=== PATIENT | female | born 1940 | race Caucasian/White ===

== ENCOUNTER 2021-07-22 09:54 | Inpatient (IN) | payer MEDICARE, MEDICAID, SELFPAY ==
[2021-07-22] VITALS (7 sets, daily range): BP systolic 100–146; BP diastolic 00–65; PULSE 59–80; RESP 15–21; TEMP 36.8–38.8; O2SAT 95–99; BMI 30.2
--- NOTE | ~2021-07-22 | CT_ITS ---
EXAMINATION: CT CHEST WITHOUT CONTRAST CLINICAL INFORMATION: Diffuse crackles. Hypoxia. COMPARISON: Previous chest x-ray from earlier the same day TECHNIQUE: Axial images through the chest without contrast. Sagittal and coronal reconstructions on the technologist workstation were performed. Exam is limited due to artifact from respiratory motion. This CT examination was performed using dose optimization techniques as appropriate, variously including the following: *Automated exposure control *Adjustment of mA and/or kV according to patient size (this includes techniques or standardized protocols for targeted exams where dose is matched to indication/reason for exam; i.e. extremities or head) *Use of iterative reconstruction technique DLP: 558 mGy-cm FINDINGS: LUNGS: There is elevation of the right hemidiaphragm. There is right middle lobe atelectasis. There are scattered small nodules and nodular opacities seen in both upper lobes probably representing airways disease. Largest nodule is in the right upper lobe and measures 6 mm, axial image 88 series 5. There are clustered peribronchial nodules seen in the right middle and right lower lobe suggestive of airways disease. There are clustered peribronchial nodules in the lingula suggestive of airways disease as well. There is focal atelectasis or small infiltrate in the left lower lobe. MEDIASTINUM: There is evidence of atherosclerotic disease. The heart does not appear enlarged. There is mild coronary artery and aortic valve calcification. The thoracic aorta is normal in caliber. There is no pericardial effusion. There are no enlarged hilar or mediastinal lymph nodes. PLEURA: There is no pleural effusion. No pleural mass or thickening. AXILLA: No lymphadenopathy. UPPER ABDOMEN: Evaluation of the liver is limited due to motion. There is question of low-attenuation liver lesions. Some low-attenuation areas are in the peripheral liver adjacent to the ribs and may be artifactual. There is a 2 cm low-attenuation liver lesion in the more central liver axial image 42 series 3. There is a well-defined 2.5 cm low-attenuation lesion in the spleen that probably represents a cyst. There are atrophic changes of the pancreas. OSSEOUS STRUCTURES: There are degenerative changes of the spine and shoulders. The bones are heterogeneous in attenuation. CT/CT chest wo con IMPRESSION: Numerous clustered peribronchial nodules suggestive of airways disease. Left lower lobe atelectasis or small pneumonia. Elevated right hemidiaphragm and right middle lobe atelectasis. Question liver lesions.
--- NOTE | ~2021-07-22 | XR_ITS ---
EXAMINATION: XR CHEST CLINICAL INFORMATION: Fever and cough COMPARISON: None TECHNIQUE: AP portable view of the chest was obtained. FINDINGS: There is elevation of the right hemidiaphragm. No confluent parenchymal disease identified. No pneumothorax or pleural effusion. Heart normal size. No evidence of pulmonary edema. Calcified vessels present. There is significant degenerative change of the left shoulder with findings to suggest rotator cuff tear. XR/XR chest 1V IMPRESSION: No definite acute parenchymal disease. Elevation of the right hemidiaphragm.
--- NOTE | 2021-07-22 11:00 | ECG_ITS ---
Test Reason : SOB Blood Pressure : / mmHG Vent. Rate : 072 BPM Atrial Rate : 072 BPM P-R Int : 184 ms QRS Dur : 076 ms QT Int : 336 ms P-R-T Axes : 022 -16 202 degrees QTc Int : 367 ms Normal sinus rhythm Moderate voltage criteria for LVH, may be normal variant Nonspecific T wave abnormality Abnormal ECG No previous ECGs available Referred By: Mery Barrett Electronically Signed By:PHI CRYSTAL
--- NOTE | 2021-07-22 11:10 | ED_ITS ---
HPI - General Adult General Chief complaint: General Medical Stated complaint: UTI,LETHARGIC,SOB,WARM TO TOUCH PER SNF Time Seen by Provider: 07/22/21 10:06 Source: patient Mode of arrival: ambulatory History of Present Illness HPI narrative: 81-year-old female with a past medical history of Alzheimer's, chronic of communication deficit, diabetes, hypertension, GERD, vitamin-D deficiency, urinary incontinence, trigeminal neuralgia, hyperglycemia, [place], anemia, major depression disorder, presenting to ED from SNF diagnosed with UTI yesterday given dose of Rocephin, sent in today for increasing lethargy per half-way staff. Per EMS reported crackles on exam and patient warm to touch. History limited secondary to patient's baseline dementia Onset (ago): day(s) Related Data Home Medications Medication Instructions Recorded Confirmed amlodipine 5 mg tablet 5 mg PO DAILY 07/22/21 07/22/21 ascorbic acid (vitamin C) 500 mg 500 mg PO BID@0900,1700 07/22/21 07/22/21 chewable tablet (Vitamin C) cefpodoxime 200 mg tablet 200 mg PO BID@0700,1900 07/22/21 07/22/21 cholecalciferol (vitamin D3) 1,250 1,250 mcg PO QMONTH 07/22/21 07/22/21 mcg (50,000 unit) oral wafer erythromycin 5 mg/gram (0.5 %) eye 1 appl OPHTHALMIC (EYE) MOTH@2100 07/22/21 07/22/21 ointment escitalopram oxalate 5 mg tablet 5 mg PO DAILY 07/22/21 07/22/21 ferrous sulfate 325 mg (65 mg 325 mg PO DAILY 07/22/21 07/22/21 iron) tablet fluticasone propionate 50 2 spray INTRANASAL DAILY 07/22/21 07/22/21 mcg/actuation nasal spray,suspension latanoprost 0.005 % eye drops 1 drp OPHTHALMIC (EYE) DAILY@169907/22/2107/03 memantine 21 mg capsule 21 mg PO DAILY@169907/22/21 07/22/21 sprinkle,extended release 24hr metformin 500 mg tablet 500 mg PO DAILY 07/22/21 07/22/21 methenamine hippurate 1 gram tablet 1 g PO BID@0800,1700 07/22/21 07/22/21 omeprazole 20 mg tablet,delayed 20 mg PO BID 07/22/21 07/22/21 release phenytoin 50 mg chewable tablet 50 mg PO BID@0800,1700 07/22/21 07/22/21 phenytoin sodium extended 100 mg 100 mg PO BID@0800,1300 07/22/21 07/22/21 capsule pregabalin 100 mg capsule 100 mg PO DAILY 07/22/21 07/22/21 pregabalin 300 mg capsule 300 mg PO BEDTIME 07/22/21 07/22/21 tamsulosin 0.4 mg capsule 0.4 mg PO DAILY@1700 07/22/21 07/22/21 Allergies Allergy/AdvReac Type Severity Reaction Status Date / Time carbamazepine [From Tegretol] Allergy Unknown Verified 07/22/21 10:21 codeine Allergy Unknown Verified 07/22/21 10:21 iodine Allergy Unknown Verified 07/22/21 10:21 dye Allergy Unknown Uncoded 07/22/21 10:21 Review of Systems Review of Systems: Constitutional: + Fever, No Chills, No Fatigue, + Malaise Cardiovascular: No Chest Pain, No SOB Respiratory: + Cough, No Sputum, No Dyspnea Gastrointestinal: No Nausea, No Vomiting, No Diarrhea, No Abdominal pain Skin: No Skin Lesions, No rash Neuro: +lethargy History limited secondary to baseline dementia Yes all other systems are reviewed and are negative PMFSH Past Medical History Attestation statement: The following information was validated with the patient. Social History Social History Alcohol intake: unknown Patient Tobacco Use Status: Tobacco use Unknown Advance Directives: No Physical Exam Vital Signs: Vital Signs: Last Vital Signs Temp 99.8 F 07/22/21 13:11 Pulse 62 07/22/21 13:11 Resp 16 07/22/21 13:11 BP 145/50 H 07/22/21 13:11 Pulse Ox 95 07/22/21 13:11 Body Mass Index 30.2 Const: Other: Lethargic, alert to voice General: cooperative Limitations: no limitations HENMT: Head: Yes normal to inspection Ears: hearing grossly normal bilaterally General nose exam: Normal external nose present Face and sinus: Yes normal facial exam Eyes: General: appearance normal, both eyes and all related structures Pupils: Equal, round and reactive pupils present Neck: Neck: Yes normal visual inspection Resp: Effort & Inspection: normal respiratory effort Auscultation: crackles diffuse Cardio: Rate: regular rate Heart sounds: S1 normal heart sound present and S2 normal heart sound present GI: Inspection: Yes normal to inspection Palpation (GI): Soft to palpation, nontender, no guarding and not rigid Skin: Rashes: no rashes Wounds: no wounds Neuro: Other: Lethargic, baseline dementia, does not follow commands General: tone normal Cranial nerves: Yes Equal, round and reactive pupils present Extrem: General: Yes normal to inspection Course Course Course Narrative: -1149--noted leukocytosis of 18.7, H&H 9/28.9, lactic 1.2 XR chest 1V IMPRESSION: No definite acute parenchymal disease. Elevation of the right hemidiaphragm. -BUN of 24, initial troponin 11.4 > will obtain 3 hour repeat -UA infected > pt meets SIRS. Patient noted to desat to 91% on RA, increasingly lethargic/baseline dementia avoiding 30 mg/ per kg IVF 2/2 respiratory status. Will obtain dry CT chest for further eval. Plan for admission -COVID-19/influenza/RSV negative -1440--patient admitted to hospitalist service for further management Medical Decision Making [facility] Narrative Medical decision making narrative: 81-year-old female with a past medical history of Alzheimer's, chronic of communication deficit, diabetes, hypertension, GERD, vitamin-D deficiency, urinary incontinence, trigeminal neuralgia, hyperglycemia, [place], anemia, major depression disorder, presenting to ED from SNF diagnosed with UTI yesterday given dose of Rocephin, sent in today for increasing lethargy per half-way staff. On exam febrile 101.8 rectally, lethargic, baseline dementia/does not follow commands, lungs with diffuse crackles, abdomen soft/nontender. Concern for worsening UTI vs pneumonia vs viral syndrome/COVID-19. Rule other infectious/metabolic etiology. Low concern for ICH/CVA Plan: EKG, labs, UA, CXR, IV antibiotics, anticipated admission Lab Data Result diagrams: 07/22/21 11:15 07/22/21 11:15 Labs: Lab Results 07/22/21 07/22/21 07/22/21 Range/Units 11:15 11:15 11:15 WBC 18.7 H (4.8-10.8) X10*3/uL RBC 3.46 L (4.20-5.50) X10*6/uL Hgb 9.0 L (12.0-16.0) g/dl Hct 28.9 L (37-47) % MCV 83.5 (80-98) fL MCH 26.0 L (27.0-33.0) pg MCHC 31.1 (31.0-35.0) g/dl RDW 18.5 H (11.0-16.0) % Plt Count 198 (160-400) X10*3/uL MPV 11.1 (9.4-12.3) fL Immature Gran % (Auto) 0.8 H (0.0-0.4) % Neut % (Auto) 82.4 H (45-73) % Lymph % (Auto) 5.2 L (20-40) % [place] % (Auto) 11.5 H (2-11) % Eos % (Auto) 0.0 (0-4) % Baso % (Auto) 0.1 (0-2) % Lymph # (Auto) 1.0 L (1.2-4.9) X10*3/uL [place] # (Auto) 2.2 H (0.1-1.2) X10*3/uL Eos # (Auto) 0.0 (0.0-0.4) X10*3/uL Baso # (Auto) 0.0 (0.0-0.2) X10*3/uL Abs Immat Gran (auto) 0.15 H (0.00-0.03) X10*3/uL Absolute Neuts (auto) 15.4 H (2.0-8.3) X10*3/uL Absolute Nucleated RBC 0.000 (0.0-0.012) X10*3/uL Nucleated RBC % (auto) 0.0 (0.0-0.2) /100WBC Smear Tech's Comments VERIFIED Sodium 138 (135-145) mmol/L Potassium 3.7 (3.3-5.1) mmol/L Chloride 108 (96-108) mmol/L Carbon Dioxide 19 L (22-29) mmol/L Anion Gap 15 (12-20) BUN 24 H (9-16) mg/dL Creatinine 0.75 (0.5-1.4) mg/dL Estim Creat Clear Calc 50.6 Estimated GFR > 60 Random Glucose 291 H (60-115) mg/dL Lactic Acid 1.2 (0.5-2.0) mmol/L Calcium 7.8 L (8.4-10.2) mg/dL Magnesium 2.1 (1.6-2.6) mg/dL Total Bilirubin 0.4 (0.0-1.0) mg/dL Direct Bilirubin 0.3 (0.0-0.5) mg/dL AST 6 (5-31) U/L ALT 7 (0-31) U/L Alkaline Phosphatase 147 H (39-117) U/L Troponin I High Sens (<3.5-17.0) ng/L B-Natriuretic Peptide (<100) pg/mL Total Protein 6.2 L (6.5-8.0) g/dL Albumin 2.9 L (3.5-5.0) g/dL Lipase (8-78) U/L Urine Color Urine Appearance Urine pH (5.0-8.0) Ur Specific [place] (1.005-1.025) Urine Protein (NEG-TRACE) MG/DL Urine Glucose (UA) (NEG) MG/DL Urine Ketones (NEG) MG/DL Urine Blood (NEG) Urine Nitrite (NEG) Ur Leukocyte Esterase (NEG) Urine RBC (0) /HPF Urine WBC (0-4) /HPF Ur Squamous Epith Cells /LPF Amorphous Sediment /LPF Urine Bacteria /LPF Urine Yeast /HPF Coronavirus (PCR) (Negative) Influenza Type A (PCR) (Negative) Influenza Type B (PCR) (Negative) RSV RNA Qual (PCR) (Negative) 07/22/21 07/22/21 07/22/21 Range/Units 11:37 11:45 11:45 WBC (4.8-10.8) X10*3/uL RBC (4.20-5.50) X10*6/uL Hgb (12.0-16.0) g/dl Hct (37-47) % MCV (80-98) fL MCH (27.0-33.0) pg MCHC (31.0-35.0) g/dl RDW (11.0-16.0) % Plt Count (160-400) X10*3/uL MPV (9.4-12.3) fL Immature Gran % (Auto) (0.0-0.4) % Neut % (Auto) (45-73) % Lymph % (Auto) (20-40) % [place] % (Auto) (2-11) % Eos % (Auto) (0-4) % Baso % (Auto) (0-2) % Lymph # (Auto) (1.2-4.9) X10*3/uL [place] # (Auto) (0.1-1.2) X10*3/uL Eos # (Auto) (0.0-0.4) X10*3/uL Baso # (Auto) (0.0-0.2) X10*3/uL Abs Immat Gran (auto) (0.00-0.03) X10*3/uL Absolute Neuts (auto) (2.0-8.3) X10*3/uL Absolute Nucleated RBC (0.0-0.012) X10*3/uL Nucleated RBC % (auto) (0.0-0.2) /100WBC Smear Tech's Comments Sodium (135-145) mmol/L Potassium (3.3-5.1) mmol/L Chloride (96-108) mmol/L Carbon Dioxide (22-29) mmol/L Anion Gap (12-20) BUN (9-16) mg/dL Creatinine (0.5-1.4) mg/dL Estim Creat Clear Calc Estimated GFR Random Glucose (60-115) mg/dL Lactic Acid (0.5-2.0) mmol/L Calcium (8.4-10.2) mg/dL Magnesium (1.6-2.6) mg/dL Total Bilirubin (0.0-1.0) mg/dL Direct Bilirubin (0.0-0.5) mg/dL AST (5-31) U/L ALT (0-31) U/L Alkaline Phosphatase (39-117) U/L Troponin I High Sens 11.4 (<3.5-17.0) ng/L B-Natriuretic Peptide 108 H (<100) pg/mL Total Protein (6.5-8.0) g/dL Albumin (3.5-5.0) g/dL Lipase (8-78) U/L Urine Color YELLOW Urine Appearance CLOUDY Urine pH 6.0 (5.0-8.0) Ur Specific [place] 1.020 (1.005-1.025) Urine Protein 2+ H (NEG-TRACE) MG/DL Urine Glucose (UA) NEG (NEG) MG/DL Urine Ketones NEG (NEG) MG/DL Urine Blood 3+ H (NEG) Urine Nitrite NEG (NEG) Ur Leukocyte Esterase 3+ H (NEG) Urine RBC 0 (0) /HPF Urine WBC TNTC H (0-4) /HPF Ur Squamous Epith Cells 3+ /LPF Amorphous Sediment 2+ /LPF Urine Bacteria 1+ /LPF Urine Yeast 3+ /HPF Coronavirus (PCR) (Negative) Influenza Type A (PCR) (Negative) Influenza Type B (PCR) (Negative) RSV RNA Qual (PCR) (Negative) 07/22/21 07/22/21 07/22/21 Range/Units 11:45 11:46 13:05 WBC (4.8-10.8) X10*3/uL RBC (4.20-5.50) X10*6/uL Hgb (12.0-16.0) g/dl Hct (37-47) % MCV (80-98) fL MCH (27.0-33.0) pg MCHC (31.0-35.0) g/dl RDW (11.0-16.0) % Plt Count (160-400) X10*3/uL MPV (9.4-12.3) fL Immature Gran % (Auto) (0.0-0.4) % Neut % (Auto) (45-73) % Lymph % (Auto) (20-40) % [place] % (Auto) (2-11) % Eos % (Auto) (0-4) % Baso % (Auto) (0-2) % Lymph # (Auto) (1.2-4.9) X10*3/uL [place] # (Auto) (0.1-1.2) X10*3/uL Eos # (Auto) (0.0-0.4) X10*3/uL Baso # (Auto) (0.0-0.2) X10*3/uL Abs Immat Gran (auto) (0.00-0.03) X10*3/uL Absolute Neuts (auto) (2.0-8.3) X10*3/uL Absolute Nucleated RBC (0.0-0.012) X10*3/uL Nucleated RBC % (auto) (0.0-0.2) /100WBC Smear Tech's Comments Sodium (135-145) mmol/L Potassium (3.3-5.1) mmol/L Chloride (96-108) mmol/L Carbon Dioxide (22-29) mmol/L Anion Gap (12-20) BUN (9-16) mg/dL Creatinine (0.5-1.4) mg/dL Estim Creat Clear Calc Estimated GFR Random Glucose (60-115) mg/dL Lactic Acid (0.5-2.0) mmol/L Calcium (8.4-10.2) mg/dL Magnesium (1.6-2.6) mg/dL Total Bilirubin (0.0-1.0) mg/dL Direct Bilirubin (0.0-0.5) mg/dL AST (5-31) U/L ALT (0-31) U/L Alkaline Phosphatase (39-117) U/L Troponin I High Sens 12.1 (<3.5-17.0) ng/L B-Natriuretic Peptide (<100) pg/mL Total Protein (6.5-8.0) g/dL Albumin (3.5-5.0) g/dL Lipase 59 (8-78) U/L Urine Color Urine Appearance Urine pH (5.0-8.0) Ur Specific [place] (1.005-1.025) Urine Protein (NEG-TRACE) MG/DL Urine Glucose (UA) (NEG) MG/DL Urine Ketones (NEG) MG/DL Urine Blood (NEG) Urine Nitrite (NEG) Ur Leukocyte Esterase (NEG) Urine RBC (0) /HPF Urine WBC (0-4) /HPF Ur Squamous Epith Cells /LPF Amorphous Sediment /LPF Urine Bacteria /LPF Urine Yeast /HPF Coronavirus (PCR) NEGATIVE (Negative) Influenza Type A (PCR) NEGATIVE (Negative) Influenza Type B (PCR) NEGATIVE (Negative) RSV RNA Qual (PCR) NEGATIVE (Negative) Discharge Plan Discharge Clinical Impression: UTI (urinary tract infection) Qualifiers: Urinary tract infection type: acute cystitis Hematuria presence: without hematuria Qualified Code(s): N30.00 - Acute cystitis without hematuria Patient Disposition: Admitted As Inpatient
[2021-07-22 11:21] LABS: Basophils Percent Auto 0.1 % (0-2); Hematocrit 28.9 % (37-47); Imm Gran Abs Auto 0.15 X10*3/uL (0.00-0.03); Imm Gran Pct Auto 0.8 % (0.0-0.4); Lymphocytes Percent Auto 5.2 % (20-40); MANUAL DIFF FLAG SCAN; Mean Corpuscular HGB Conc 31.1 g/dl (31.0-35.0); Mean Corpuscular Volume 83.5 fL (80-98); Mean Platelet Volume 11.1 fL (9.4-12.3); Monocytes Absolute Auto 2.2 X10*3/uL (0.1-1.2); Monocytes Percent Auto 11.5 % (2-11); Neutrophils Absolute Auto 15.4 X10*3/uL (2.0-8.3); Neutrophils Percent Auto 82.4 % (45-73); Platelet Count 198 X10*3/uL (160-400); Red Blood Count 3.46 X10*6/uL (4.20-5.50); Red Cell Distribution Width 18.5 % (11.0-16.0); SCAN SMEAR FLAG 1; White Blood Count 18.7 X10*3/uL (4.8-10.8)
[2021-07-22] MEDS: Acetaminophen Supp 650 MG SUPP.RECT PR (11:24)
[2021-07-22 11:35] LABS: Lactic Acid 1.2 mmol/L (0.5-2.0)
--- NOTE | 2021-07-22 11:40 | PHA.MEDREC ---
Pharmacy Consult ? Medication Reconciliation Pharmacy has completed the medication reconciliation. There are no remarkable issue for provider's attention. Jaimee Mtez, YolyD
[2021-07-22 11:41] LABS: SLIDE REVIEW VERIFIED
[2021-07-22 11:51] LABS: Appearance Urine CLOUDY; Color Urine YELLOW; Glucose Urine UA NEG (NEG); Leukocyte Esterase Urine 3+ (NEG); Nitrite Urine NEG (NEG); UACC Culture Trigger YES; Urine Blood 3+ (NEG); Urine Ketones NEG (NEG); Urine Protein 2+ MG/DL (NEG-TRACE)
[2021-07-22 11:52] LABS: Alanine Aminotransferase 7 U/L (0-31); Albumin Level 2.9 g/dL (3.5-5.0); Alkaline Phosphatase 147 U/L (39-117); Anion Gap 15 (12-20); Aspartate Amino Transferase 6 U/L (5-31); Bilirubin Direct 0.3 mg/dL (0.0-0.5); Bilirubin Total 0.4 mg/dL (0.0-1.0); Blood Urea Nitrogen 24 mg/dL (9-16); Calcium 7.8 mg/dL (8.4-10.2); Carbon Dioxide 19 mmol/L (22-29); Chloride 108 mmol/L (96-108); Creatinine Clr Calc Pharmacy 50.6; Estimated Glomerular Filt Rate > 60; Glucose Random 291 mg/dL (60-115); Magnesium 2.1 mg/dL (1.6-2.6); Potassium 3.7 mmol/L (3.3-5.1); Sodium 138 mmol/L (135-145); Total Protein 6.2 g/dL (6.5-8.0)
[2021-07-22 12:11] LABS: Lipase 59 U/L (8-78)
[2021-07-22] MEDS: 0.9 % Sodium Chloride 1,000 ML 999 ML IV (12:14)
[2021-07-22 12:16] LABS: Troponin-I High Sensitivity 11.4 ng/L (<3.5-17.0)
[2021-07-22 12:17] LABS: B Type Natriuretic Peptide 108 pg/mL (<100)
[2021-07-22 12:26] LABS: WBC Urine TNTC /HPF (0-4)
[2021-07-22 12:27] LABS: Squamous Epithelial Cell Urine 3+ /LPF
[2021-07-22 12:28] LABS: Bacteria Urine 1+ /LPF; RBC Urine 0 /HPF (0)
[2021-07-22 12:29] LABS: Amorphous Sediment Urine 2+ /LPF
[2021-07-22] MEDS: cefTRIAXone sodium 1 GM in 0.9 % Sodium Chloride 50 ML IV (13:10)
[2021-07-22 13:35] LABS: Troponin-I High Sensitivity 12.1 ng/L (<3.5-17.0)
[2021-07-22 13:49] LABS: Influenza A PCR NEGATIVE (Negative); Influenza B PCR NEGATIVE (Negative); Resp Syncy Virus RNA Qual PCR NEGATIVE (Negative); SARS COV2 PCR INHOUSE NEGATIVE (Negative)
--- NOTE | 2021-07-22 15:39 | P.HPHOSP_ITS ---
History of Present Illness Date of Service: 07/22/21 Chief Complaint: Altered mentation, lethargy An 81 years old lady with PMH of dementia, diabetes, HTN, trigeminal neuralgia who presents to the hospital from detention with altered mentation and increased lethargy. According to the daughter who was at the bedside she reports she received a call yesterday from the nurse at the facility stating that the patient has been getting more lethargic and sleepy and that she was started on oral antibiotics for treatment of urine infection. The next morning, today she was contacted by the staff nurse reporting the patient getting worse and more lethargic and not responsive so she was transferred over to the emergency here. The patient herself is unable to provide much of history because of advanced dementia and lethargy. In the emergency urine looks dirty with no previous cultures available. She was noted to spike fever in required more oxygen supplement as she developed difficulty breathing. Admitted for further evaluation and treatment. Review of Systems Review of Systems: Patient altered mentation unable to provide to stem attack review [facility] Medical History (Updated 07/23/21 @ 10:27 by Santhosh Ruth MD) Dementia Diabetes FH: trigeminal neuralgia HTN (hypertension) Pertinent family history: - Social History Household Members: Other Housing: [facility] Do you presently have visiting nurse or other home services: No Unable to assess alcohol history related to: Unable to respond Alcohol intake: unknown Patient Tobacco Use Status: Tobacco use Unknown Use of substances other than those prescribed or required for medical reasons: Unknown Currently Displaying Signs/Symptoms of Drug Intoxication Withdrawal: No Advance Directives: No Recently lost weight without trying: No service: No Current occupational status: disabled Meds Allergies Allergy/AdvReac Type Severity Reaction Status Date / Time carbamazepine [From Tegretol] Allergy Unknown Verified 07/22/21 10:21 codeine Allergy Unknown Verified 07/22/21 10:21 iodine Allergy Unknown Verified 07/22/21 10:21 dye Allergy Unknown Uncoded 07/22/21 10:21 Active Medications: Current Medications Pharmacy Consult (Consult Rx Perform Med Rec) 1 each MISCELLANE ONCE PRN PRN Reason: Consult order Home Medications Medication Instructions Recorded Confirmed Last Taken Type amlodipine 5 mg tablet 5 mg PO DAILY 07/22/21 07/22/21 07/21/21 History ascorbic acid (vitamin C) 500 mg 500 mg PO BID@0900,1700 07/22/21 07/22/21 07/21/21 History chewable tablet (Vitamin C) cefpodoxime 200 mg tablet 200 mg PO BID@0700,1900 07/22/21 07/22/21 07/22/21 07:00 History cholecalciferol (vitamin D3) 1,250 1,250 mcg PO QMONTH 07/22/21 07/22/21 06/28/21 History mcg (50,000 unit) oral wafer erythromycin 5 mg/gram (0.5 %) eye 1 appl OPHTHALMIC (EYE) MOTH@2100 07/22/21 07/22/21 07/21/21 21:00 History ointment escitalopram oxalate 5 mg tablet 5 mg PO DAILY 07/22/21 07/22/21 07/21/21 History ferrous sulfate 325 mg (65 mg 325 mg PO DAILY 07/22/21 07/22/21 07/21/21 History iron) tablet fluticasone propionate 50 2 spray INTRANASAL DAILY 07/22/21 07/22/21 07/21/21 History mcg/actuation nasal spray,suspension latanoprost 0.005 % eye drops 1 drp OPHTHALMIC (EYE) DAILY@17007/22/21 07/22/21 07/21/21 History memantine 21 mg capsule 21 mg PO DAILY@169907/22/21 07/22/21 07/21/21 History sprinkle,extended release 24hr metformin 500 mg tablet 500 mg PO DAILY 07/22/21 07/22/21 07/21/21 History methenamine hippurate 1 gram tablet 1 g PO BID@0800,1700 07/22/21 07/22/21 07/21/21 History omeprazole 20 mg tablet,delayed 20 mg PO BID 07/22/21 07/22/21 07/21/21 History release phenytoin 50 mg chewable tablet 50 mg PO BID@0800,1700 07/22/21 07/22/21 07/21/21 History phenytoin sodium extended 100 mg 100 mg PO BID@0800,1300 07/22/21 07/22/21 07/21/21 History capsule pregabalin 100 mg capsule 100 mg PO DAILY 07/22/21 07/22/21 07/21/21 History pregabalin 300 mg capsule 300 mg PO BEDTIME 07/22/21 07/22/21 07/21/21 History tamsulosin 0.4 mg capsule 0.4 mg PO DAILY@1700 07/22/21 07/22/21 07/21/21 Histo ry Physical Exam Vital Signs and Narrative: Vital Signs: Last Vital Signs Temp 99.8 F 07/22/21 13:11 Pulse 59 07/22/21 15:10 Resp 15 07/22/21 15:10 BP 117/46 L 07/22/21 15:10 Pulse Ox 99 07/22/21 15:10 Body Mass Index 30.2 Const: Other: Constitutional : Lethargic, response to stimulation, not in respiratory distress Neck : Normal inspection, Supple Cardiovascular : RRR, S1 S2, no lower extremity edema Respiratory : Fair bilateral air entry but decreased at the bases, no crac kles, wheezes or rhonchi Gastrointestinal: soft, lax, Normal bowel sounds, Non tender Skin : Warm, Dry Neurological : Alert & oriented x3, No focal deficit Results Labs CBC and Chem 7: 07/23/21 05:31 07/24/21 05:21 Labs: Laboratory Results - last 24 hr 07/22/21 07/22/21 07/22/21 11:15 11:15 11:15 MCV 83.5 MCH 26.0 L MCHC 31.1 RDW 18.5 H Plt Count 198 MPV 11.1 Immature Gran % (Auto) 0.8 H Neut % (Auto) 82.4 H Lymph % (Auto) 5.2 L [place] % (Auto) 11.5 H Eos % (Auto) 0.0 Baso % (Auto) 0.1 Lymph # (Auto) 1.0 L [place] # (Auto) 2.2 H Eos # (Auto) 0.0 Baso # (Auto) 0.0 Abs Immat Gran (auto) 0.15 H Absolute Neuts (auto) 15.4 H Absolute Nucleated RBC 0.000 Nucleated RBC % (auto) 0.0 Smear Tech's Comments VERIFIED Anion Gap 15 Estim Creat Clear Calc 50.6 Estimated GFR > 60 Random Glucose 291 H Lactic Acid 1.2 Calcium 7.8 L Magnesium 2.1 Total Bilirubin 0.4 Direct Bilirubin 0.3 AST 6 ALT 7 Alkaline Phosphatase 147 H Troponin I High Sens B-Natriuretic Peptide Total Protein 6.2 L Albumin 2.9 L Lipase Urine Color Urine Appearance Urine pH Ur Specific [place] Urine Protein Urine Glucose (UA) Urine Ketones Urine Blood Urine Nitrite Ur Leukocyte Esterase Urine RBC Urine WBC Ur Squamous Epith Cells Amorphous Sediment Urine Bacteria Urine Yeast Coronavirus (PCR) Influenza Type A (PCR) Influenza Type B (PCR) RSV RNA Qual (PCR) 07/22/21 07/22/21 07/22/21 11:37 11:45 11:45 MCV MCH MCHC RDW Plt Count MPV Immature Gran % (Auto) Neut % (Auto) Lymph % (Auto) [place] % (Auto) Eos % (Auto) Baso % (Auto) Lymph # (Auto) [place] # (Auto) Eos # (Auto) Baso # (Auto) Abs Immat Gran (auto) Absolute Neuts (auto) Absolute Nucleated RBC Nucleated RBC % (auto) Smear Tech's Comments Anion Gap Estim Creat Clear Calc Estimated GFR Random Glucose Lactic Acid Calcium Magnesium Total Bilirubin Direct Bilirubin AST ALT Alkaline Phosphatase Troponin I High Sens 11.4 B-Natriuretic Peptide 108 H Total Protein Albumin Lipase Urine Color YELLOW Urine Appearance CLOUDY Urine pH 6.0 Ur Specific [place] 1.020 Urine Protein 2+ H Urine Glucose (UA) NEG Urine Ketones NEG Urine Blood 3+ H Urine Nitrite NEG Ur Leukocyte Esterase 3+ H Urine RBC 0 Urine WBC TNTC H Ur Squamous Epith Cells 3+ Amorphous Sediment 2+ Urine Bacteria 1+ Urine Yeast 3+ Coronavirus (PCR) Influenza Type A (PCR) Influenza Type B (PCR) RSV RNA Qual (PCR) 07/22/21 07/22/21 07/22/21 11:45 11:46 13:05 MCV MCH MCHC RDW Plt Count MPV Immature Gran % (Auto) Neut % (Auto) Lymph % (Auto) [place] % (Auto) Eos % (Auto) Baso % (Auto) Lymph # (Auto) [place] # (Auto) Eos # (Auto) Baso # (Auto) Abs Immat Gran (auto) Absolute Neuts (auto) Absolute Nucleated RBC Nucleated RBC % (auto) Smear Tech's Comments Anion Gap Estim Creat Clear Calc Estimated GFR Random Glucose Lactic Acid Calcium Magnesium Total Bilirubin Direct Bilirubin AST ALT Alkaline Phosphatase Troponin I High Sens 12.1 B-Natriuretic Peptide Total Protein Albumin Lipase 59 Urine Color Urine Appearance Urine pH Ur Specific [place] Urine Protein Urine Glucose (UA) Urine Ketones Urine Blood Urine Nitrite Ur Leukocyte Esterase Urine RBC Urine WBC Ur Squamous Epith Cells Amorphous Sediment Urine Bacteria Urine Yeast Coronavirus (PCR) NEGATIVE Influenza Type A (PCR) NEGATIVE Influenza Type B (PCR) NEGATIVE RSV RNA Qual (PCR) NEGATIVE Imaging Radiologist's Impressions: Impressions Chest X-Ray 07/22/21 11:01 IMPRESSION: No definite acute parenchymal disease. Elevation of the right hemidiaphragm. Assessment and Plan (1) Sepsis: Status: Acute (2) UTI (urinary tract infection): Qualifiers: Hematuria presence: without hematuria Urinary tract infection type: acute cystitis Qualified Code(s): N30.00 - Acute cystitis without hematuria Status: Acute (3) Acute metabolic encephalopathy: Status: Acute An 81 years old lady with PMH of dementia, diabetes, HTN, trigeminal neuralgia who presents to the hospital from detention with altered mentation and increased lethargy. Sepsis Secondary to UTI Urine looks infected start IV antibiotics pending urine and blood cultures Dysphagia Concern for possible aspiration pending CT scan of the chest Covered with antibiotics Modified diet Acute metabolic encephalopathy Likely secondary to infection as the with history of advanced dementia Treat underlying problem Avoid medications that might altered mentation Diabetes type 2 POC, diabetic diet SSI DVT PPX Lovenox Quality Stroke Does the patient have a stroke diagnosis?: No VTE Prior VTE?: No VTE Risk Level:: Medical - moderate - high VTE Device Contraindication: Treatment Not Indicated VTE Drug Contraindication: N/A - Med Ordered
[2021-07-22] MEDS: Piperacillin Sodium/Tazobactam 3.375 GM in 0.9 % Sodium Chloride 50 ML IV ×2 (16:30→22:19)
[2021-07-22] MEDS: 0.9 % Sodium Chloride Flush 3 ML SYRINGE IVFLUSH (17:36)
--- NOTE | 2021-07-22 17:39 | PC.NURSE ---
P IV infiltrated in RLA ,arm swelling present I IV removed,sterile drsg applied,arm elevated E will monitor
[2021-07-22] MEDS: Enoxaparin Sodium 40 MG/0.4 ML SYRINGE SUBCUT (17:44)
[2021-07-22] MEDS: Omeprazole 20 MG CAPSULE.DR PO (17:47)
[2021-07-22] MEDS: Pregabalin 100 MG CAPSULE PO (17:47)
[2021-07-22] MEDS: Tamsulosin HCL 0.4 MG CAPSULE PO (17:48)
[2021-07-22] MEDS: Phenytoin Chewable 50 MG TAB.CHEW PO (17:48)
[2021-07-22] MEDS: Ascorbic Acid 500 MG TABLET PO (17:48)
[2021-07-22] MEDS: Phenytoin Sodium Extended 100 MG CAPSULE PO (17:48)
[2021-07-22 17:57] LABS: Glucose, Whole Blood 206 mg/dL (60-115)
[2021-07-22] MEDS: Insulin Lispro 100 UNIT/ML 3 ML VIAL SUBCUT ×2 (18:47→22:18)
[2021-07-22 21:02] LABS: Glucose, Whole Blood 268 mg/dL (60-115)
[2021-07-22] MEDS: Pregabalin 150 MG CAPSULE 300 MG PO (22:18)
[2021-07-23] VITALS: BP 136/62; PULSE 74; RESP 18; TEMP 36.1; O2SAT 96
[2021-07-23] MEDS: 0.9 % Sodium Chloride Flush 3 ML SYRINGE IVFLUSH ×3 (00:24→15:53)
[2021-07-23] MEDS: Piperacillin Sodium/Tazobactam 3.375 GM in 0.9 % Sodium Chloride 50 ML IV ×4 (04:07→21:56)
[2021-07-23 05:50] LABS: Hematocrit 26.6 % (37-47); Hemoglobin 8.2 g/dl (12.0-16.0); Mean Corpuscular HGB Conc 30.8 g/dl (31.0-35.0); Mean Corpuscular Volume 84.4 fL (80-98); Mean Platelet Volume 11.7 fL (9.4-12.3); Platelet Count 194 X10*3/uL (160-400); Red Blood Count 3.15 X10*6/uL (4.20-5.50); Red Cell Distribution Width 18.3 % (11.0-16.0); White Blood Count 13.3 X10*3/uL (4.8-10.8)
[2021-07-23 06:32] LABS: Anion Gap 14 (12-20); Blood Urea Nitrogen 21 mg/dL (9-16); Calcium 7.6 mg/dL (8.4-10.2); Carbon Dioxide 20 mmol/L (22-29); Chloride 108 mmol/L (96-108); Creatinine Clr Calc Pharmacy 53.4; Estimated Glomerular Filt Rate > 60; Glucose Random 225 mg/dL (60-115); Sodium 139 mmol/L (135-145)
[2021-07-23 08:00] VITALS: BP 157/61; PULSE 74; RESP 20; TEMP 36.9; O2SAT 94
[2021-07-23 08:37] LABS: Glucose, Whole Blood 192 mg/dL (60-115)
[2021-07-23] MEDS: Fluticasone Propionate Nasal 16 GM SPRAY 2 SPRAY NOSTRIL-B (08:38)
[2021-07-23] MEDS: Potassium Chloride/H20 10 MEQ/100 ML PIGGYBACK 100 MEQ IV (08:38)
[2021-07-23] MEDS: Ascorbic Acid 500 MG TABLET PO ×2 (08:39→15:54)
[2021-07-23] MEDS: Pregabalin 100 MG CAPSULE PO (08:39)
[2021-07-23] MEDS: Escitalopram Oxalate 5 MG TABLET PO (08:39)
[2021-07-23] MEDS: Phenytoin Sodium Extended 100 MG CAPSULE PO ×2 (08:40→12:35)
[2021-07-23] MEDS: amLODIPine Besylate 5 MG TABLET PO (08:40)
[2021-07-23] MEDS: Phenytoin Chewable 50 MG TAB.CHEW PO ×2 (08:40→17:47)
--- NOTE | 2021-07-23 08:54 | PC.NURSE ---
POTASSUIM CHLORIDE IV HUNG BURNING PATIENT DR. GARZA IN TO SEE PATIENT TOLD HIM POTASSIUM. HE D/C POTASSIUM IV AND WILL GIVE LIQUID.
--- NOTE | 2021-07-23 09:00 | P.CDIC_ITS ---
CDI Concurrent Query Documentation Clarification: PHYSICIAN'S DOCUMENTATION REQUEST Date of Query: 07/23/21900 Patient Name: Tammie Arguello Admit Date: 07/22/21 Dear Doctor, A review of the medical record indicates additional documentation may be needed. Please review below and update the documentation accordingly. Clinical Indicators: The following diagnoses or signs and symptoms were noted in the patient record: LABS: Hypokalemia Other etiology or undetermined Risk Factors/Clinical Indicators/Treatments LABS: potassium 3.0 L Based on the above, could you clarify in the Progress Notes the appropriate diagnosis, if significant, that supports the above abnormalities and additional evaluation, monitoring, and/or treatment rendered: * Labs indicate a diagnosis of (please specify) * Other (please specify) * Unable to determine Use of terms such as suspected, likely, concern for, or probable (associated with a specific diagnosis that is being evaluated, monitored, or treated as if it exists) are acceptable and can be coded in the inpatient setting, when documented at the time of discharge. Thank you, Missy Morales [facility], CDIS Extension: [phone] Please use your independent medical judgment in providing your response. THIS QUERY IS PART OF THE PERMANENT MEDICAL RECORD Provider Response: Other Other Diagnosis: hypokalemia
[2021-07-23] MEDS: Insulin Lispro 100 UNIT/ML 3 ML VIAL SUBCUT ×4 (09:20→21:55)
--- NOTE | 2021-07-23 10:26 | P.PNIM_ITS ---
Subjective Subjective Date of Service: 07/23/21 Physical Exam Vital Signs: Vital Signs: Last Vital Signs Temp 98.4 F 07/23/21 08:00 Pulse 74 07/23/21 08:00 Resp 20 07/23/21 08:00 BP 157/61 H 07/23/21 08:00 Pulse Ox 94 07/23/21 08:00 Body Mass Index 30.2 Const: Other: Constitutional : Alert, interactive, not in respiratory distress Neck : Normal inspection, Supple Cardiovascular : RRR, S1 S2, no lower extremity edema Respiratory : Fair bilateral air entry but decreased at the bases, no crackles, wheezes or rhonchi Gastrointestinal: soft, lax, Normal bowel sounds, Non tender Skin : Warm, Dry Muscular, left above knee amputation Neurological : Alert & mildly disoriented about place, difficult to hear, No focal deficit Objective Data Active Medications Acetaminophen (Acetaminophen 325 Mg Tablet) 650 mg PO Q6H PRN PRN Reason: Pain, Mild (Pain Scale 1-3) Amlodipine Besylate (Amlodipine Besylate 5 Mg Tablet) 5 mg PO DAILY [facility]; Protocol Last Admin: 07/23/21 08:40 Dose: 5 mg Documented by: CARINA Ascorbic Acid (Ascorbic Acid 500 Mg Tablet) 500 mg PO BID@0900,1700 [facility] Last Admin: 07/23/21 08:39 Dose: 500 mg Documented by: CARINA Enoxaparin Sodium (Enoxaparin Sodium 40 Mg/0.4 Ml Syringe) 40 mg SUBCUT Q24H [facility] Last Admin: 07/22/21 17:44 Dose: 40 mg Documented by: DAMION Escitalopram Oxalate (Escitalopram Oxalate 5 Mg Tablet) 5 mg PO DAILY [facility] Last Admin: 07/23/21 08:39 Dose: 5 mg Documented by: CARINA Fluticasone Propionate (Fluticasone Propionate Nasal 16 Gm [place]) 2 spray NOSTRIL-B DAILY [facility] Last Admin: 07/23/21 08:38 Dose: 2 spray Documented by: CARINA Piperacillin Sod/Tazobactam (Sod 3.375 gm/ Sodium Chloride) 50 mls @ 100 mls/hr IV Q6H [facility] Last Infusion: 07/23/21 09:58 Dose: 0 mls/hr Documented by: CARINA Insulin Human Lispro (Insulin Lispro 100 Unit/Ml 3 Ml Vial) 0 unit SUBCUT QIDACHS [facility]; Protocol Last Admin: 07/23/21 09:20 Dose: 2 unit Documented by: CARINA Latanoprost (Latanoprost 0.005 % Ophth Christa 2.5 Ml Drops) 1 drop EYE-BOTH DAILY@1700 [facility] Last Admin: 07/22/21 18:48 Dose: Not Given Documented by: DAMION Non-Admin Reason: Med Not Available Omeprazole (Omeprazole 20 Mg Capsule.) 20 mg PO BID@0630,1630 [facility] Last Admin: 07/23/21 06:18 Dose: Not Given Documented by: RODRIGO Non-Admin Reason: Patient Asleep Ondansetron HCl (Ondansetron Hcl 4 Mg/2 Ml Vial) 4 mg IVPUSH Q8H PRN PRN Reason: Nausea and Vomiting Pharmacy Consult (Consult Rx Perform Med Rec) 1 each MISCELLANE ONCE PRN PRN Reason: Consult order Phenytoin (Phenytoin Chewable 50 Mg Tab.Chew) 50 mg PO BID@0800,1700 [facility] Last Admin: 07/23/21 08:40 Dose: 50 mg Documented by: CARINA Phenytoin Sodium (Phenytoin Sodium Extended 100 Mg Capsule) 100 mg PO BID@0800,1300 [facility] Last Admin: 07/23/21 08:40 Dose: 100 mg Documented by: CARINA Pregabalin (Pregabalin 100 Mg Capsule) 100 mg PO DAILY [facility] Last Admin: 07/23/21 08:39 Dose: 100 mg Documented by: CARINA Pregabalin (Pregabalin 150 Mg Capsule) 300 mg PO BEDTIME [facility] Last Admin: 07/22/21 22:18 Dose: 300 mg Documented by: DAMION Sodium Chloride (0.9 % Sodium Chloride Flush 3 Ml Syringe) 3 ml IVFLUSH QSHIFT [facility] Last Admin: 07/23/21 08:41 Dose: 3 ml Documented by: CARINA Tamsulosin HCl (Tamsulosin Hcl 0.4 Mg Capsule) 0.4 mg PO DAILY@1700 [facility] Last Admin: 07/22/21 17:48 Dose: 0.4 mg Documented by: DAMION Labs CBC & Chem 7: 07/23/21 05:31 07/23/21 05:31 Labs: Laboratory Results - last 24 hr 07/22/21 07/22/21 07/22/21 11:15 11:15 11:15 MCV 83.5 MCH 26.0 L MCHC 31.1 RDW 18.5 H Plt Count 198 MPV 11.1 Immature Gran % (Auto) 0.8 H Neut % (Auto) 82.4 H Lymph % (Auto) 5.2 L [place] % (Auto) 11.5 H Eos % (Auto) 0.0 Baso % (Auto) 0.1 Lymph # (Auto) 1.0 L [place] # (Auto) 2.2 H Eos # (Auto) 0.0 Baso # (Auto) 0.0 Abs Immat Gran (auto) 0.15 H Absolute Neuts (auto) 15.4 H Absolute Nucleated RBC 0.000 Nucleated RBC % (auto) 0.0 Smear Tech's Comments VERIFIED Anion Gap 15 Estim Creat Clear Calc 50.6 Estimated GFR > 60 POC Glucose Random Glucose 291 H Lactic Acid 1.2 Calcium 7.8 L Magnesium 2.1 Total Bilirubin 0.4 Direct Bilirubin 0.3 AST 6 ALT 7 Alkaline Phosphatase 147 H Troponin I High Sens B-Natriuretic Peptide Total Protein 6.2 L Albumin 2.9 L Lipase Urine Color Urine Appearance Urine pH Ur Specific [place] Urine Protein Urine Glucose (UA) Urine Ketones Urine Blood Urine Nitrite Ur Leukocyte Esterase Urine RBC Urine WBC Ur Squamous Epith Cells Amorphous Sediment Urine Bacteria Urine Yeast Coronavirus (PCR) Influenza Type A (PCR) Influenza Type B (PCR) RSV RNA Qual (PCR) 07/22/21 07/22/21 07/22/21 11:37 11:45 11:45 MCV MCH MCHC RDW Plt Count MPV Immature Gran % (Auto) Neut % (Auto) Lymph % (Auto) [place] % (Auto) Eos % (Auto) Baso % (Auto) Lymph # (Auto) [place] # (Auto) Eos # (Auto) Baso # (Auto) Abs Immat Gran (auto) Absolute Neuts (auto) Absolute Nucleated RBC Nucleated RBC % (auto) Smear Tech's Comments Anion Gap Estim Creat Clear Calc Estimated GFR POC Glucose Random Glucose Lactic Acid Calcium Magnesium Total Bilirubin Direct Bilirubin AST ALT Alkaline Phosphatase Troponin I High Sens 11.4 B-Natriuretic Peptide 108 H Total Protein Albumin Lipase Urine Color YELLOW Urine Appearance CLOUDY Urine pH 6.0 Ur Specific [place] 1.020 Urine Protein 2+ H Urine Glucose (UA) NEG Urine Ketones NEG Urine Blood 3+ H Urine Nitrite NEG Ur Leukocyte Esterase 3+ H Urine RBC 0 Urine WBC TNTC H Ur Squamous Epith Cells 3+ Amorphous Sediment 2+ Urine Bacteria 1+ Urine Yeast 3+ Coronavirus (PCR) Influenza Type A (PCR) Influenza Type B (PCR) RSV RNA Qual (PCR) 07/22/21 07/22/21 07/22/21 11:45 11:46 13:05 MCV MCH MCHC RDW Plt Count MPV Immature Gran % (Auto) Neut % (Auto) Lymph % (Auto) [place] % (Auto) Eos % (Auto) Baso % (Auto) Lymph # (Auto) [place] # (Auto) Eos # (Auto) Baso # (Auto) Abs Immat Gran (auto) Absolute Neuts (auto) Absolute Nucleated RBC Nucleated RBC % (auto) Smear Tech's Comments Anion Gap Estim Creat Clear Calc Estimated GFR POC Glucose Random Glucose Lactic Acid Calcium Magnesium Total Bilirubin Direct Bilirubin AST ALT Alkaline Phosphatase Troponin I High Sens 12.1 B-Natriuretic Peptide Total Protein Albumin Lipase 59 Urine Color Urine Appearance Urine pH Ur Specific [place] Urine Protein Urine Glucose (UA) Urine Ketones Urine Blood Urine Nitrite Ur Leukocyte Esterase Urine RBC Urine WBC Ur Squamous Epith Cells Amorphous Sediment Urine Bacteria Urine Yeast Coronavirus (PCR) NEGATIVE Influenza Type A (PCR) NEGATIVE Influenza Type B (PCR) NEGATIVE RSV RNA Qual (PCR) NEGATIVE 07/22/21 07/22/21 07/23/21 17:45 20:50 05:31 MCV 84.4 MCH 26.0 L MCHC 30.8 L RDW 18.3 H Plt Count 194 MPV 11.7 Immature Gran % (Auto) Neut % (Auto) Lymph % (Auto) [place] % (Auto) Eos % (Auto) Baso % (Auto) Lymph # (Auto) [place] # (Auto) Eos # (Auto) Baso # (Auto) Abs Immat Gran (auto) Absolute Neuts (auto) Absolute Nucleated RBC 0.000 Nucleated RBC % (auto) 0.0 Smear Tech's Comments Anion Gap Estim Creat Clear Calc Estimated GFR POC Glucose 206 H 268 H Random Glucose Lactic Acid Calcium Magnesium Total Bilirubin Direct Bilirubin AST ALT Alkaline Phosphatase Troponin I High Sens B-Natriuretic Peptide Total Protein Albumin Lipase Urine Color Urine Appearance Urine pH Ur Specific [place] Urine Protein Urine Glucose (UA) Urine Ketones Urine Blood Urine Nitrite Ur Leukocyte Esterase Urine RBC Urine WBC Ur Squamous Epith Cells Amorphous Sediment Urine Bacteria Urine Yeast Coronavirus (PCR) Influenza Type A (PCR) Influenza Type B (PCR) RSV RNA Qual (PCR) 07/23/21 07/23/21 05:31 08:08 MCV MCH MCHC RDW Plt Count MPV Immature Gran % (Auto) Neut % (Auto) Lymph % (Auto) [place] % (Auto) Eos % (Auto) Baso % (Auto) Lymph # (Auto) [place] # (Auto) Eos # (Auto) Baso # (Auto) Abs Immat Gran (auto) Absolute Neuts (auto) Absolute Nucleated RBC Nucleated RBC % (auto) Smear Tech's Comments Anion Gap 14 Estim Creat Clear Calc 53.4 Estimated GFR > 60 POC Glucose 192 H Random Glucose 225 H Lactic Acid Calcium 7.6 L Magnesium Total Bilirubin Direct Bilirubin AST ALT Alkaline Phosphatase Troponin I High Sens B-Natriuretic Peptide Total Protein Albumin Lipase Urine Color Urine Appearance Urine pH Ur Specific [place] Urine Protein Urine Glucose (UA) Urine Ketones Urine Blood Urine Nitrite Ur Leukocyte Esterase Urine RBC Urine WBC Ur Squamous Epith Cells Amorphous Sediment Urine Bacteria Urine Yeast Coronavirus (PCR) Influenza Type A (PCR) Influenza Type B (PCR) RSV RNA Qual (PCR) Assessment and Plan (1) UTI (urinary tract infection): Status: Acute (2) Sepsis: Status: Acute (3) Acute metabolic encephalopathy: Status: Acute (4) Hypokalemia: Status: Acute Assessment and Plan: An 81 years old lady with PMH of dementia, diabetes, HTN, trigeminal neuralgia who presents to the hospital from custodial with altered mentation and increased lethargy. Sepsis, resolved Secondary to UTI Continue IV antibiotics pending urine and blood cultures Aspiration Pneumonia 2/2 Dysphagia Likely aspiration with altered mentation Seen in CT scan of the chest Continue IV Zosyn Modified diet Acute metabolic encephalopathy Improving Likely secondary to infection as the with history of advanced dementia Treat underlying problem Avoid medications that might altered mentation Hypokalemia K of 3.1 give replacement and follow BMP Diabetes type 2 POC, diabetic diet SSI DVT PPX Lovenox Quality Stroke Does the patient have a stroke diagnosis?: No VTE Prior VTE?: No VTE Risk Level:: Medical - moderate - high VTE Device Contraindication: Treatment Not Indicated VTE Drug Contraindication: N/A - Med Ordered
[2021-07-23] MEDS: Potassium Chloride Packet 20 MEQ PACKET 40 MEQ PO (10:54)
--- NOTE | 2021-07-23 11:54 | MHC.CLN ---
NUTRITION CONSULT PATIENT WITH STAGE I TO COCCYX. INCREASED LETHARG PRIOR TO ADMISSION. LIMITED MEALS, BUT POOR INTAKE SINCE ADMISSION. ADDING GLUCERNA 240 ML BID TO PROVIDE 474 KCAL, 20 G PROTEIN.
[2021-07-23 11:55] VITALS: BP 161/54; PULSE 62; RESP 17; TEMP 36.3; O2SAT 99
[2021-07-23 11:59] LABS: Glucose, Whole Blood 183 mg/dL (60-115)
--- NOTE | 2021-07-23 12:15 | MHC.CM.PN ---
PATIENT IS IN FROM [facility] WHERE SHE WILL RETURN. IMM DISCUSSED WITH DAUGHTER, JACKIE @ [phone] ORIGINAL LEFT WITH PATIENT PER Sathish LITTLE PATIENT MOBILIZES WITH A WHEEL CHAIR AT FACILITY. SHE TAKES HERSELF TO ACTIVITIES AND TO THE [place]. JACKIE AND JUHI (OTHER DAUGHTER) ARE HCP AGENTS. THIS FUNDRAISING OFFICER TO REVIEW FORMS SENT FROM [facility] FOR COPY. 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 IMM 07/23 IN CHART
--- NOTE | 2021-07-23 12:27 | MHC.CM.PN ---
COVID VACCINE CARD AND MOLST IN CHART. NO HCP LOCATED. WILL REQUEST ONE FROM DAUGHTER WHEN SHE ARRIVES
[2021-07-23 15:30] VITALS: BP 154/68; PULSE 59; RESP 18; TEMP 36.6; O2SAT 95
[2021-07-23] MEDS: Omeprazole 20 MG CAPSULE.DR PO (15:54)
[2021-07-23 16:49] LABS: Glucose, Whole Blood 175 mg/dL (60-115)
[2021-07-23] MEDS: Tamsulosin HCL 0.4 MG CAPSULE PO (17:46)
[2021-07-23] MEDS: Enoxaparin Sodium 40 MG/0.4 ML SYRINGE SUBCUT (17:48)
[2021-07-23] MEDS: Latanoprost 0.005 % Ophth Sol 2.5 ML DROPS 1 DROP EYE-BOTH (18:08)
[2021-07-23 20:18] LABS: Glucose, Whole Blood 267 mg/dL (60-115)
[2021-07-23] MEDS: Pregabalin 150 MG CAPSULE 300 MG PO (21:56)
[2021-07-24] VITALS: BP 113/53; PULSE 57; RESP 18; TEMP 36.4; O2SAT 99
[2021-07-24] MEDS: 0.9 % Sodium Chloride Flush 3 ML SYRINGE IVFLUSH ×3 (00:24→16:32)
[2021-07-24] MEDS: Piperacillin Sodium/Tazobactam 3.375 GM in 0.9 % Sodium Chloride 50 ML IV ×4 (04:55→20:59)
[2021-07-24] MEDS: Omeprazole 20 MG CAPSULE.DR PO ×2 (06:37→16:22)
[2021-07-24 06:57] LABS: Anion Gap 11 (12-20); Blood Urea Nitrogen 17 mg/dL (9-16); Calcium 7.5 mg/dL (8.4-10.2); Carbon Dioxide 23 mmol/L (22-29); Chloride 107 mmol/L (96-108); Creatinine Clr Calc Pharmacy 61.2; Estimated Glomerular Filt Rate > 60; Glucose Random 116 mg/dL (60-115); Sodium 138 mmol/L (135-145)
[2021-07-24 07:23] VITALS: BP 140/60; PULSE 87; RESP 18; TEMP 36.2; O2SAT 98
[2021-07-24 07:39] LABS: Glucose, Whole Blood 119 mg/dL (60-115)
--- NOTE | 2021-07-24 08:27 | PC.NURSE ---
Skin assessment completed today. Patient has a deep tissue injury to her sacrum/coccyx area and on right buttock. EPC cream applied with orders for frequent turning and repositioning. Also patient is incontinent so a purewick was asked to be placed. No other skin issues noted at this time.
[2021-07-24] MEDS: Potassium Chloride Packet 20 MEQ PACKET 40 MEQ PO (09:45)
[2021-07-24] MEDS: Ascorbic Acid 500 MG TABLET PO ×2 (09:54→16:22)
[2021-07-24] MEDS: amLODIPine Besylate 5 MG TABLET PO (09:54)
[2021-07-24] MEDS: Phenytoin Sodium Extended 100 MG CAPSULE PO ×2 (09:54→13:04)
[2021-07-24] MEDS: Escitalopram Oxalate 5 MG TABLET PO (09:54)
[2021-07-24] MEDS: Phenytoin Chewable 50 MG TAB.CHEW PO ×2 (09:54→16:22)
[2021-07-24] MEDS: Pregabalin 100 MG CAPSULE PO (09:57)
--- NOTE | 2021-07-24 11:42 | MHC.CM.PN ---
WAITING CULTURES. PLAN IS TO TRANSFER PATIENT BACK TO [facility] ON WEDNESDAY. FACILITY MADE AWARE.
[2021-07-24 12:20] LABS: Glucose, Whole Blood 213 mg/dL (60-115)
[2021-07-24] MEDS: Insulin Lispro 100 UNIT/ML 3 ML VIAL SUBCUT ×3 (13:03→20:59)
[2021-07-24 15:28] VITALS: BP 133/60; PULSE 55; RESP 17; TEMP 36.5; O2SAT 99
[2021-07-24] MEDS: Tamsulosin HCL 0.4 MG CAPSULE PO (16:22)
[2021-07-24] MEDS: Latanoprost 0.005 % Ophth Sol 2.5 ML DROPS 1 DROP EYE-BOTH (16:35)
[2021-07-24 17:07] LABS: Glucose, Whole Blood 285 mg/dL (60-115)
[2021-07-24] MEDS: Enoxaparin Sodium 40 MG/0.4 ML SYRINGE SUBCUT (17:51)
[2021-07-24 20:23] LABS: Glucose, Whole Blood 254 mg/dL (60-115)
[2021-07-24] MEDS: Pregabalin 150 MG CAPSULE 300 MG PO (20:59)
[2021-07-25] VITALS: BP 126/42; PULSE 90; RESP 17; TEMP 36.2; O2SAT 98
[2021-07-25] MEDS: 0.9 % Sodium Chloride Flush 3 ML SYRINGE IVFLUSH ×2 (00:14→08:53)
[2021-07-25] MEDS: Omeprazole 20 MG CAPSULE.DR PO (06:12)
[2021-07-25] MEDS: Piperacillin Sodium/Tazobactam 3.375 GM in 0.9 % Sodium Chloride 50 ML IV ×2 (06:12→08:52)
[2021-07-25 06:24] LABS: Hematocrit 28.8 % (37-47); Hemoglobin 8.7 g/dl (12.0-16.0); Mean Corpuscular HGB Conc 30.2 g/dl (31.0-35.0); Mean Corpuscular Hemoglobin 25.7 pg (27.0-33.0); Mean Platelet Volume 11.6 fL (9.4-12.3); Platelet Count 228 X10*3/uL (160-400); Red Blood Count 3.39 X10*6/uL (4.20-5.50); Red Cell Distribution Width 17.7 % (11.0-16.0); White Blood Count 7.1 X10*3/uL (4.8-10.8)
[2021-07-25 06:46] LABS: Anion Gap 13 (12-20); Blood Urea Nitrogen 14 mg/dL (9-16); Calcium 7.9 mg/dL (8.4-10.2); Carbon Dioxide 23 mmol/L (22-29); Chloride 108 mmol/L (96-108); Creatinine Clr Calc Pharmacy 64.3; Estimated Glomerular Filt Rate > 60; Glucose Random 118 mg/dL (60-115); Potassium 3.8 mmol/L (3.3-5.1); Sodium 140 mmol/L (135-145)
[2021-07-25 07:27] VITALS: BP 155/74; PULSE 52; RESP 18; TEMP 36.3; O2SAT 100
[2021-07-25 07:59] LABS: Glucose, Whole Blood 127 mg/dL (60-115)
[2021-07-25] MEDS: Phenytoin Chewable 50 MG TAB.CHEW PO (08:53)
[2021-07-25] MEDS: Phenytoin Sodium Extended 100 MG CAPSULE PO ×2 (08:53→13:09)
[2021-07-25] MEDS: Pregabalin 100 MG CAPSULE PO (08:53)
[2021-07-25] MEDS: Escitalopram Oxalate 5 MG TABLET PO (08:53)
[2021-07-25] MEDS: amLODIPine Besylate 5 MG TABLET PO (08:53)
[2021-07-25] MEDS: Ascorbic Acid 500 MG TABLET PO (08:54)
[2021-07-25] MEDS: Fluticasone Propionate Nasal 16 GM SPRAY 2 SPRAY NOSTRIL-B (08:55)
--- NOTE | 2021-07-25 09:18 | P.DS_ITS ---
DS: Providers Provider Date of Service: 07/25/21 Date of admission: 07/22/21 15:29 Primary care physician: Hetal Collado MD DS: Diagnosis Discharge Diagnosis (1) Sepsis: Status: Acute (2) UTI (urinary tract infection): Status: Acute (3) Acute metabolic encephalopathy: Status: Acute DS: Summary Status at Discharge Cognitive/behavioral status at discharge: Chief Complaint: Altered mentation, lethargy An 81 years old lady with PMH of dementia, diabetes, HTN, trigeminal neuralgia who presents to the hospital from senior care with altered mentation and incre ased lethargy. According to the daughter who was at the bedside she reports she received a call yesterday from the nurse at the facility stating that the patient has been getting more lethargic and sleepy and that she was started on oral antibiotics for treatment of urine infection.? The next morning, today she was contacted by the staff nurse reporting the patient getting worse and more lethargic and not responsive so she was transferred over to the emergency here.? The patient herself is unable to provide much of history because of advanced dementia and lethargy. In the emergency urine looks dirty with no previous cultures available. She was noted to spike fever in required more oxygen supplement as she developed difficulty breathing. Admitted for further evaluation and treatment. Hospital course: Patient admitted for sepsis due to UTI and presumed aspiration pneumonia, complicated by metabolic encephalopathy and UTI and was treated with IV Zosyn with improvement. Initial WBC of 18K is now 7, there is no fever, no hypoxia. URine culture is negative, encephalopathy has resolved. Will transition to oral Augmentin for 5 more days. She also had hypokalemia that has correctged Final Diagnoses 1/Sepsis 2/UTI 3/Aspiration pneumonia 4/metabolic encephalopathy 5/Hypokalemia. Time Spent with Patient Time attestation: Total time spent providing and/or coordinating discharge services: Discharge coordination time: Greater than 30 minutes Quality: Stroke Does the patient have a stroke diagnosis?: No Physical Exam Vital Signs: Vital Signs: Last Vital Signs Temp 97.3 F 07/25/21 07:27 Pulse 52 07/25/21 07:27 Resp 18 07/25/21 07:27 BP 155/74 H 07/25/21 07:27 Pulse Ox 100 07/25/21 07:27 Body Mass Index 30.2 DS: Data Data Completed and Pending Labs on day of discharge: Laboratory Results - last 24 hr 07/24/21 07/24/21 07/24/21 11:49 16:50 20:16 WBC RBC Hgb Hct MCV MCH MCHC RDW Plt Count MPV Absolute Nucleated RBC Nucleated RBC % (auto) Sodium Potassium Chloride Carbon Dioxide Anion Gap BUN Creatinine Estim Creat Clear Calc Estimated GFR POC Glucose 213 H 285 H 254 H Random Glucose Calcium 07/25/21 07/25/21 07/25/21 05:51 05:51 07:39 WBC 7.1 RBC 3.39 L Hgb 8.7 L Hct 28.8 L MCV 85.0 MCH 25.7 L MCHC 30.2 L RDW 17.7 H Plt Count 228 MPV 11.6 Absolute Nucleated RBC 0.000 Nucleated RBC % (auto) 0.0 Sodium 140 Potassium 3.8 D Chloride 108 Carbon Dioxide 23 Anion Gap 13 BUN 14 Creatinine 0.59 Estim Creat Clear Calc 64.3 Estimated GFR > 60 POC Glucose 127 H Random Glucose 118 H Calcium 7.9 L Preliminary micro results at discharge 07/22/21 13:05 Blood Culture - Preliminary Blood - Venous No growth after 48 hours. 07/22/21 13:05 Blood Culture - Preliminary Blood - Venous No growth after 48 hours. Discharge Plan Discharge Patient Disposition: [facility] Discharge Diagnosis: Sepsis, pneumonia, UIT, metabolic encephalopathy Referrals: Hetal Collado MD [Primary Care Provider] - 1 Week Discharge Medications: New amoxicillin-pot clavulanate 500-125 mg Tablet 500 mg PO Q12H Qty: 10 RF: 0 Continued latanoprost 0.005 % Drops 1 drp OPHTHALMIC (EYE) DAILY@1700 RF: 0 metformin 500 mg Tablet 500 mg PO DAILY RF: 0 cefpodoxime 200 mg Tablet 200 mg PO BID@0700,1900 RF: 0 phenytoin sodium extended 100 mg Capsule 100 mg PO BID@0800,1300 RF: 0 phenytoin 50 mg Tablet,Chewable 50 mg PO BID@0800,1700 RF: 0 amlodipine 5 mg Tablet 5 mg PO DAILY RF: 0 methenamine hippurate 1 gram Tablet 1 g PO BID@0800,1700 RF: 0 tamsulosin 0.4 mg Capsule 0.4 mg PO DAILY@1700 RF: 0 erythromycin 5 mg/gram (0.5 %) Ointment 1 appl OPHTHALMIC (EYE) MOTH@2100 RF: 0 ferrous sulfate 325 mg (65 mg iron) Tablet 325 mg PO DAILY RF: 0 ascorbic acid (vitamin C) [Vitamin C] 500 mg Tablet,Chewable 500 mg PO BID@0900,1700 RF: 0 fluticasone propionate 50 mcg/actuation Endeavor,Suspension 2 spray INTRANASAL DAILY RF: 0 escitalopram oxalate 5 mg Tablet 5 mg PO DAILY RF: 0 pregabalin 100 mg Capsule 100 mg PO DAILY RF: 0 pregabalin 300 mg Capsule 300 mg PO BEDTIME RF: 0 omeprazole 20 mg Tablet,Delayed Release (Dr/Ec) 20 mg PO BID RF: 0 cholecalciferol (vitamin D3) 1,250 mcg (50,000 unit) Wafer 1,250 mcg PO QMONTH RF: 0 memantine 21 mg Capsule,Sprinkle,Er 24hr 21 mg PO DAILY@1700 RF: 0 Discharge Orders: Discharge Order (Routine); Ordered 07/25/21 Ordered By: Dominic Landeros Diet: advance to usual diet Activity on Discharge: As tolerated Stand Alone Forms: Patient Portal Discharge page Care Plan Goals: prevent rehospitalization, full recovery from sepsis Health Concerns: aspirations Plan of Treatment: take Augmentin as directed and follow up with your Doctor in a week Assessment: As above
[2021-07-25] MEDS: Amoxicillin/Potassium Clav 500 MG TABLET PO (09:50)
[2021-07-25] MEDS: Acetaminophen 325 MG TABLET 650 MG PO (09:55)
[2021-07-25 11:28] LABS: Glucose, Whole Blood 228 mg/dL (60-115)
--- NOTE | 2021-07-25 11:28 | MHC.CM.PN ---
PT CLEARED TO RETURN TO [facility] TODAY SNF INFORMED AND DC SUMMARY SENT VIA [facility] CM CALLED PTS DAUGHTERS/HCPS JACKIE ([phone]) AND LARS ([phone]) BOTH ARE AWARE AND IN AGREEMENT WITH DC PLAN/TIME JACKIE REPORTS SHE HAS THE PTS PILLOW AND ASKS THAT PT BE MADE AWARE SHE WILL BRING IT TO HER LATER SHE ALSO REPORTS PT DOES NOT HAVE HER HEARING AIDS BUT CAN READ LIPS IF A CLEAR MASK IS WORN CM DID GO TO PTS ROOM TO INFORM HER OF ABOVE INFO, PT SLEEPING. CM WILL RETURN PT WILL DC BACK TO [facility] AT 1330
[2021-07-25] MEDS: Insulin Lispro 100 UNIT/ML 3 ML VIAL SUBCUT (13:09)
== END 2021-07-25 14:20 | disposition skilled nursing facility (03) | DRG 871 ==
LOC: HO.ED 12:49 → HO.EDOVER 15:45 → HO.S3 15:50
PROVIDERS: Physician Assistant; Admitting Provider Student in an Organized Health Care Education/Training Program; Emergency Provider Emergency Medicine; PCP Internal Medicine; Visit Provider Internal Medicine
DX: A41.9 Sepsis, unspecified organism (principal); G93.41 Metabolic encephalopathy; J69.0 Pneumonitis due to inhalation of food and vomit; N39.0 Urinary tract infection, site not specified; E11.9 Type 2 diabetes mellitus without complications; I10 Essential (primary) hypertension; G30.9 Alzheimer's disease, unspecified; R13.10 Dysphagia, unspecified; F02.80 Dementia in other diseases classified elsewhere, unspecified severity, without behavioral disturbance, psychotic disturbance, mood disturbance, and anxiety; E87.6 Hypokalemia; Z20.822 Contact with and (suspected) exposure to COVID-19; Z88.5 Allergy status to narcotic agent; Z79.51 Long term (current) use of inhaled steroids; Z79.84 Long term (current) use of oral hypoglycemic drugs; Z79.899 Other long term (current) drug therapy
CPT/HCPCS: 0241U; 36415; 71045; 71250; 80048; 80076; 81001; 82947; 83605; 83690; 83735; 83880; 84484; 85025; 85027; 87040; 87086; 93005; 99285; J0696; J1650; J2543

== ENCOUNTER 2021-08-23 15:43 | Inpatient (IN) | payer MEDICARE, MEDICAID, SELFPAY ==
--- NOTE | ~2021-08-23 | XR_ITS ---
EXAMINATION: XR CHEST CLINICAL INFORMATION: Lethargy . COMPARISON: 07/22/2021 TECHNIQUE: Frontal view of the chest was obtained. FINDINGS: Low lung volumes. Persistent elevation of the right hemidiaphragm. No focal consolidation or mass. No pleural effusion or pneumothorax. Normal pulmonary vascularity. Calcified aortic arch. Normal heart size. Severe degenerative changes of the shoulders and thoracic spine. XR/XR chest 1V IMPRESSION: No acute pulmonary disease. No significant change from prior study.
[2021-08-23 15:54] VITALS: BP 180/67; BP 188/77; PULSE 80; PULSE 83; RESP 22; TEMP 36.6; O2SAT 97; BMI 22.7
--- NOTE | 2021-08-23 16:31 | ED_ITS ---
HPI - General Adult General Chief complaint: General Medical Stated complaint: lethargy Time Seen by Provider: 08/23/21 16:29 Source: RN notes reviewed and other (care home facility records) Limitations: altered mental status (Dementia) History of Present Illness HPI narrative: This is a 81-year-old female with history of dementia among multiple other medical problems, who has had recent UTI and started on Augmentin 875 mg twice a day on the . The patient was sent in for decreased p.o. intake, increased lethargy. She also has a known history of COPD. Patient herself is unable to give any history Related Data Home Medications Medication Instructions Recorded Confirmed amlodipine 5 mg tablet 5 mg PO DAILY 07/22/21 08/23/21 erythromycin 5 mg/gram (0.5 %) eye 1 appl OPHTHALMIC (EYE) MOTH@2100 07/22/21 08/23/21 ointment escitalopram oxalate 5 mg tablet 5 mg PO DAILY 07/22/21 08/23/21 ferrous sulfate 325 mg (65 mg 325 mg PO DAILY 07/22/21 08/23/21 iron) tablet fluticasone propionate 50 2 spray INTRANASAL DAILY 07/22/21 08/23/21 mcg/actuation nasal spray,suspension latanoprost 0.005 % eye drops 1 drp OPHTHALMIC (EYE) DAILY@17007/22/21 08/23/21 memantine 21 mg capsule 21 mg PO DAILY@169907/22/21 08/23/21 sprinkle,extended release 24hr metformin 500 mg tablet 500 mg PO DAILY 07/22/21 08/23/21 methenamine hippurate 1 gram tablet 1 g PO BID@0800,1700 07/22/21 08/23/21 omeprazole 20 mg tablet,delayed 20 mg PO BID 07/22/21 08/23/21 release phenytoin 50 mg chewable tablet 50 mg PO BID@0800,1700 07/22/21 08/23/21 phenytoin sodium extended 100 mg 100 mg PO BID@0800,1300 07/22/21 08/23/21 capsule amoxicillin 875 mg-potassium 1 tab PO BID 08/23/21 08/23/21 clavulanate 125 mg tablet (Augmentin) Allergies Allergy/AdvReac Type Severity Reaction Status Date / Time carbamazepine [From Tegretol] Allergy Unknown Verified 07/22/21 10:21 codeine Allergy Unknown Verified 07/22/21 10:21 iodine Allergy Unknown Verified 07/22/21 10:21 dye Allergy Unknown Uncoded 07/22/21 10:21 Review of Systems Review of Systems: Yes Unobtainable due to mental condition Constitutional: Constitutional: Denies fever(s) Comments: Lethargy Integumentary/Breasts: Comments: Patient has known chronic sacral decubitus ulcer Neurologic: Denies Sensory deficit (Neuro) [facility] Past Medical History Medical History (Updated 08/23/21 @ 20:10 by Bipin Camarena MD) Dementia Diabetes FH: trigeminal neuralgia HTN (hypertension) Social History Social History Household Members: Other Housing: Custodial Do you presently have visiting nurse or other home services: No Unable to assess alcohol history related to: Unable to respond Alcohol intake: unknown Patient Tobacco Use Status: Tobacco use Unknown Advance Directives: No Advance Directives Information Provided: Yes service: No Current occupational status: disabled Physical Exam Vital Signs: Vital Signs: Last Vital Signs Temp 97.6 F 08/23/21 18:36 Pulse 87 08/23/21 18:36 Resp 17 08/23/21 18:36 BP 152/69 H 08/23/21 18:36 Pulse Ox 96 08/23/21 18:36 Body Mass Index 22.7 Const: Other: Patient makes eye contact, is nonverbal, does not appear acutely ill, appearance consistent with chronic dementia General: no acute distress and alert HENMT: Other: Mucous membranes somewhat dry Head: Yes normal to inspection Eyes: General: appearance normal, both eyes and all related structures Eyelids: Yes eyelids normal Conjunctivae: conjunctivae normal Pupils: Equal, round and reactive pupils present Neck: Neck: Yes normal visual inspection and Yes supple Chest: Chest palpation & inspection: normal inspection of the chest Resp: Effort & Inspection: normal respiratory effort Auscultation: clear to auscultation bilaterally Cardio: Rate: regular rate Rhythm: regular rhythm Heart sounds: S1 normal heart sound present, S2 normal heart sound present, no gallops, no murmurs and no rubs GI: Other: Moderately obese Inspection: Yes obesity Palpation (GI): Soft to palpation, nontender and Other GI palpation findings present (Non-distended) Auscultation: normal bowel sounds Skin: General skin exam: no rashes or lesions noted Neuro: General: no focal motor deficits and CN's II-XI intact bilaterally Cranial nerves: Yes Equal, round and reactive pupils present Cognition (Neur o): normal cognition Motor exam (neuro): 5/5 motor strength present throughout Sensory Exam: No Sensory deficit (Neuro) Extrem: Other: Left [id number] amputation, stump appears well General: Yes no pedal edema Psych: Appearance: grossly normal Affect: normal affect Medical Decision Making MDM Narrative Medical decision making narrative: Patient with dementia, recent left the drain decreased p.o. intake. Patient is hyperglycemic, and when her sodium was corrected for her elevated blood sugar, she is hypernatremic. BUN to creatinine ratio is elevated suggesting dehydration. Patient needs admission for IV fluids, blood sugar control. Patient was given insulin IV as well as normal saline 1 L bolus IV, then started on half-normal saline. Patient is being admitted to the hospitalist service. Lab Data Lab results reviewed: Yes I reviewed the patient's lab results. Result diagrams: 08/23/21 17:07 08/23/21 17:07 Labs: Lab Results 08/23/21 08/23/21 08/23/21 Range/Units 17:07 17:07 17:07 WBC 10.6 (4.8-10.8) X10*3/uL RBC 4.09 L D (4.20-5.50) X10*6/uL Hgb 10.7 L D (12.0-16.0) g/dl Hct 35.0 L D (37-47) % MCV 85.6 (80-98) fL MCH 26.2 L (27.0-33.0) pg MCHC 30.6 L (31.0-35.0) g/dl RDW 16.6 H (11.0-16.0) % Plt Count 314 D (160-400) X10*3/uL MPV 11.6 (9.4-12.3) fL Immature Gran % (Auto) 0.5 H (0.0-0.4) % Neut % (Auto) 83.7 H (45-73) % Lymph % (Auto) 5.5 L (20-40) % Addison % (Auto) 10.2 (2-11) % Eos % (Auto) 0.0 (0-4) % Baso % (Auto) 0.1 (0-2) % Lymph # (Auto) 0.6 L (1.2-4.9) X10*3/uL [place] # (Auto) 1.1 (0.1-1.2) X10*3/uL Eos # (Auto) 0.0 (0.0-0.4) X10*3/uL Baso # (Auto) 0.0 (0.0-0.2) X10*3/uL Abs Immat Gran (auto) 0.05 H (0.00-0.03) X10*3/uL Absolute Neuts (auto) 8.9 H (2.0-8.3) X10*3/uL Absolute Nucleated RBC 0.000 (0.0-0.012) X10*3/uL Nucleated RBC % (auto) 0.0 (0.0-0.2) /100WBC Sodium 144 (135-145) mmol/L Potassium 3.8 (3.3-5.1) mmol/L Chloride 111 H (96-108) mmol/L Carbon Dioxide 21 L (22-29) mmol/L Anion Gap 16 (12-20) BUN 38 H D (9-16) mg/dL Creatinine 0.90 (0.5-1.4) mg/dL Estim Creat Clear Calc 43.4 Estimated GFR 60 Random Glucose 588 H* D (60-115) mg/dL Calcium 8.8 D (8.4-10.2) mg/dL Total Bilirubin 0.4 (0.0-1.0) mg/dL AST 10 D (5-31) U/L ALT 6 (0-31) U/L Alkaline Phosphatase 265 H D (39-117) U/L Total Protein 7.4 (6.5-8.0) g/dL Albumin 3.5 D (3.5-5.0) g/dL Urine Color Urine Appearance Urine pH (5.0-8.0) Ur Specific [place] (1.005-1.025) Urine Protein (NEG-TRACE) MG/DL Urine Glucose (UA) (NEG) MG/DL Urine Ketones (NEG) MG/DL Urine Blood (NEG) Urine Nitrite (NEG) Ur Leukocyte Esterase (NEG) Urine RBC (0) /HPF Urine WBC (0-4) /HPF Ur Squamous Epith Cells /LPF Ur Renal Epithelial Cell /LPF Urine Bacteria /LPF Urine Mucus /LPF Urine Yeast /HPF Phenytoin 6.1 L* (10.0-20.0) ug/mL 08/23/21 Range/Units 17:16 WBC (4.8-10.8) X10*3/uL RBC (4.20-5.50) X10*6/uL Hgb (12.0-16.0) g/dl Hct (37-47) % MCV (80-98) fL MCH (27.0-33.0) pg MCHC (31.0-35.0) g/dl RDW (11.0-16.0) % Plt Count (160-400) X10*3/uL MPV (9.4-12.3) fL Immature Gran % (Auto) (0.0-0.4) % Neut % (Auto) (45-73) % Lymph % (Auto) (20-40) % [place]ison % (Auto) (2-11) % Eos % (Auto) (0-4) % Baso % (Auto) (0-2) % Lymph # (Auto) (1.2-4.9) X10*3/uL [place]ison # (Auto) (0.1-1.2) X10*3/uL Eos # (Auto) (0.0-0.4) X10*3/uL Baso # (Auto) (0.0-0.2) X10*3/uL Abs Immat Gran (auto) (0.00-0.03) X10*3/uL Absolute Neuts (auto) (2.0-8.3) X10*3/uL Absolute Nucleated RBC (0.0-0.012) X10*3/uL Nucleated RBC % (auto) (0.0-0.2) /100WBC Sodium (135-145) mmol/L Potassium (3.3-5.1) mmol/L Chloride (96-108) mmol/L Carbon Dioxide (22-29) mmol/L Anion Gap (12-20) BUN (9-16) mg/dL Creatinine (0.5-1.4) mg/dL Estim Creat Clear Calc Estimated GFR Random Glucose (60-115) mg/dL Calcium (8.4-10.2) mg/dL Total Bilirubin (0.0-1.0) mg/dL AST (5-31) U/L ALT (0-31) U/L Alkaline Phosphatase (39-117) U/L Total Protein (6.5-8.0) g/dL Albumin (3.5-5.0) g/dL Urine Color YELLOW Urine Appearance CLOUDY Urine pH 6.0 (5.0-8.0) Ur Specific [place]onson 1.025 (1.005-1.025) Urine Protein 2+ H (NEG-TRACE) MG/DL Urine Glucose (UA) 250 H (NEG) MG/DL Urine Ketones NEG (NEG) MG/DL Urine Blood TRACE (NEG) Urine Nitrite NEG (NEG) Ur Leukocyte Esterase 2+ H (NEG) Urine RBC 0 (0) /HPF Urine WBC 5-9 H (0-4) /HPF Ur Squamous Epith Cells 2+ /LPF Ur Renal Epithelial Cell 1+ /LPF Urine Bacteria NONE /LPF Urine Mucus NONE /LPF Urine Yeast 4+ /HPF Phenytoin (10.0-20.0) ug/mL Imaging Data Chest x-ray: My impression: nad Radiologist's impression: IMPRESSION: No acute pulmonary disease. No significant change from prior study. ? Critical Care Time Critical Care Time Critical Care Time: Yes Total Critical Care Time: 35 Attestation: Critical care time for this life-threatening illness exclusive of all billable procedures was approximately 35 minutes Discharge Plan Discharge Clinical Impression: Acute hyperglycemia, Acute dehydration, Acute hypernatremia, Acute UTI Patient Disposition: Admitted As Inpatient
[2021-08-23 17:13] LABS: MANUAL DIFF FLAG NO
[2021-08-23 17:14] LABS: Basophils Percent Auto 0.1 % (0-2); Hemoglobin 10.7 g/dl (12.0-16.0); Imm Gran Abs Auto 0.05 X10*3/uL (0.00-0.03); Imm Gran Pct Auto 0.5 % (0.0-0.4); Lymphocytes Absolute Auto 0.6 X10*3/uL (1.2-4.9); Lymphocytes Percent Auto 5.5 % (20-40); Mean Corpuscular HGB Conc 30.6 g/dl (31.0-35.0); Mean Corpuscular Hemoglobin 26.2 pg (27.0-33.0); Mean Corpuscular Volume 85.6 fL (80-98); Mean Platelet Volume 11.6 fL (9.4-12.3); Monocytes Absolute Auto 1.1 X10*3/uL (0.1-1.2); Monocytes Percent Auto 10.2 % (2-11); Neutrophils Absolute Auto 8.9 X10*3/uL (2.0-8.3); Neutrophils Percent Auto 83.7 % (45-73); Platelet Count 314 X10*3/uL (160-400); Red Blood Count 4.09 X10*6/uL (4.20-5.50); Red Cell Distribution Width 16.6 % (11.0-16.0); White Blood Count 10.6 X10*3/uL (4.8-10.8)
[2021-08-23 17:24] LABS: Appearance Urine CLOUDY; Color Urine YELLOW; Glucose Urine UA 250 MG/DL (NEG); Leukocyte Esterase Urine 2+ (NEG); Nitrite Urine NEG (NEG); Specific Gravity - Urine 1.025 (1.005-1.025); UACC Culture Trigger YES; Urine Blood TRACE (NEG); Urine Ketones NEG (NEG); Urine Protein 2+ MG/DL (NEG-TRACE)
[2021-08-23] MEDS: 0.9 % Sodium Chloride 1,000 ML 999 ML IV (17:24)
[2021-08-23 17:33] LABS: RBC Urine 0 /HPF (0)
[2021-08-23 17:33] LABS: Alanine Aminotransferase 6 U/L (0-31); Albumin Level 3.5 g/dL (3.5-5.0); Alkaline Phosphatase 265 U/L (39-117); Anion Gap 16 (12-20); Aspartate Amino Transferase 10 U/L (5-31); Bilirubin Total 0.4 mg/dL (0.0-1.0); Blood Urea Nitrogen 38 mg/dL (9-16); Calcium 8.8 mg/dL (8.4-10.2); Carbon Dioxide 21 mmol/L (22-29); Chloride 111 mmol/L (96-108); Creatinine Clr Calc Pharmacy 43.4; Estimated Glomerular Filt Rate 60; Glucose Random 588 mg/dL (60-115); Potassium 3.8 mmol/L (3.3-5.1); Sodium 144 mmol/L (135-145); Total Protein 7.4 g/dL (6.5-8.0)
[2021-08-23 17:34] LABS: Squamous Epithelial Cell Urine 2+ /LPF
[2021-08-23 17:35] LABS: Renal Epithelial Cells Urine 1+ /LPF
[2021-08-23 17:41] LABS: Phenytoin Dilantin 6.1 ug/mL (10.0-20.0)
[2021-08-23] MEDS: Sodium Chloride 0.45 % 1,000 ML 125 ML IVCONT (18:12)
[2021-08-23] MEDS: Insulin Regular, Human 100 UNIT/ML 3 ML VIAL 6 UNIT IVPUSH (18:13)
[2021-08-23 18:36] VITALS: BP 152/69; PULSE 87; RESP 17; TEMP 36.4; O2SAT 96
--- NOTE | 2021-08-23 18:46 | PC.NURSE ---
The pt presented via EMS from local SNF for evaluation of lethargy and decreased PO intake. Per the pts daughter who arrived shortly after the pt arrived she has had UTI's recently and has been on antibiotics, however her urine culture was contaminated from the assisted. On arrival pt makes eye contact with RN, she does not respond verball yappropriately - she is very soft spoken and when she is verbal her verbal replies are not appropriate for the questions asked. Respirations non-labored. SKin pale/warm/dry. Pt has L AKA and shortly after arrival we turned her to assess her skinh. no areas of breakdown noted with the exception of a covered wound in the vicinity lumbar spine - the dressing is C/D/I and has a date of 08-22 on it. I did not remove this dressing - the pts daughter is aware and agrees with this.
--- NOTE | 2021-08-23 18:48 | P.HPHOSP_ITS ---
History of Present Illness Date of Service: 08/23/21 81 year-old female with history of dementia among multiple other medical problems, who has had recent UTI and started on Augmentin 875 mg twice a day on the .? The patient was sent in for decreased p.o. intake, increased lethargy. She is a long-term resident of local senior care facility; daughter states that she did not respond to antibiotics. Sent in today for mental status changes Review of Systems Review of Systems: Per daughter: Denies chest pain Denies shortness of breath Denies nausea vomiting diarrhea PMFSH Medical History (Updated 08/23/21 @ 18:52 by Simón Cuellar DO) Dementia Diabetes FH: trigeminal neuralgia HTN (hypertension) Pertinent family history: . Social History Household Members: Other Housing: Intermediate Do you presently have visiting nurse or other home services: No Unable to assess alcohol history related to: Unable to respond Alcohol intake: unknown Patient Tobacco Use Status: Tobacco use Unknown Advance Directives: No Advance Directives Information Provided: Yes service: No Current occupational status: disabled Meds Allergies Allergy/AdvReac Type Severity Reaction Status Date / Time carbamazepine [From Tegretol] Allergy Unknown Verified 07/22/21 10:21 codeine Allergy Unknown Verified 07/22/21 10:21 iodine Allergy Unknown Verified 07/22/21 10:21 dye Allergy Unknown Uncoded 07/22/21 10:21 Active Medications: Current Medications Amlodipine Besylate (Amlodipine Besylate 5 Mg Tablet) 5 mg PO DAILY [facility]; Protocol Enoxaparin Sodium (Enoxaparin Sodium 40 Mg/0.4 Ml Syringe) 40 mg SUBCUT Q24H [facility] Erythromycin (Erythromycin Base 0.5% Oph Oin 1 Gm Tube) 1 cm EYE-BOTH MOTH@2100 [facility] Escitalopram Oxalate (Escitalopram Oxalate 5 Mg Tablet) 5 mg PO DAILY [facility] Ferrous Sulfate (Ferrous Sulfate 324 Mg Tablet.Dr) 324 mg PO DAILY [facility] Fluticasone Propionate (Fluticasone Propionate Nasal 16 Gm Newton) 2 spray NOSTRIL-B DAILY [facility] Sodium Chloride () 1,000 mls @ 125 mls/hr IVCONT .Q8H [facility] Last Admin: 08/23/21 18:12 Dose: 125 mls/hr Documented by: Sodium Chloride () 1,000 mls @ 100 mls/hr IVCONT .Q10H [facility] Latanoprost (Latanoprost 0.005 % Ophth Christa 2.5 Ml Drops) 1 drop EYE-BOTH DAILY@1700 [facility] Non-Formulary Medication (Methenamine Hippurate) 1 gm PO BID@0800,1700 [facility] Non-Formulary Medication (Memantine) 21 mg PO DAILY@1700 [facility] Omeprazole (Omeprazole 20 Mg Capsule.Dr) 20 mg PO BID@0630,1630 [facility] Phenytoin (Phenytoin Chewable 50 Mg Tab.Chew) 50 mg PO BID@0800,1700 [facility] Phenytoin Sodium (Phenytoin Sodium Extended 100 Mg Capsule) 100 mg PO BID@0800,1300 [facility] Sodium Chloride (0.9 % Sodium Chloride Flush 3 Ml Syringe) 3 ml IVFLUSH QSHIFT [facility] Home Medications Medication Instructions Recorded Confirmed Last Taken Type amlodipine 5 mg tablet 5 mg PO DAILY 07/22/21 08/23/21 07/21/21 History erythromycin 5 mg/gram (0.5 %) eye 1 appl OPHTHALMIC (EYE) MOTH@2100 07/22/21 08/23/21 07/21/21 21:00 History ointment escitalopram oxalate 5 mg tablet 5 mg PO DAILY 07/22/21 08/23/21 07/21/21 History ferrous sulfate 325 mg (65 mg 325 mg PO DAILY 07/22/21 08/23/21 07/21/21 History iron) tablet fluticasone propionate 50 2 spray INTRANASAL DAILY 07/22/21 08/23/21 07/21/21 History mcg/actuation nasal spray,suspension latanoprost 0.005 % eye drops 1 drp OPHTHALMIC (EYE) DAILY@169907/22/21 08/23/21 07/21/21 History memantine 21 mg capsule 21 mg PO DAILY@169907/22/21 08/23/21 07/21/21 History sprinkle,extended release 24hr metformin 500 mg tablet 500 mg PO DAILY 07/22/21 08/23/21 07/21/21 History methenamine hippurate 1 gram tablet 1 g PO BID@0800,1700 07/22/21 08/23/21 History omeprazole 20 mg tablet,delayed 20 mg PO BID 07/22/21 08/23/21 07/21/21 History release phenytoin 50 mg chewable tablet 50 mg PO BID@0800,1700 07/22/21 08/23/21 07/21/21 History phenytoin sodium extended 100 mg 100 mg PO BID@0800,1300 07/22/21 08/23/21 07/21/21 History capsule amoxicillin 875 mg-potassium 1 tab PO BID 08/23/21 08/23/21 Unknown History clavulanate 125 mg tablet (Augmentin) Physical Exam Vital Signs and Narrative: Vital Signs: Last Vital Signs Temp 98 F 08/23/21 15:54 Pulse 83 08/23/21 15:54 Resp 22 H 08/23/21 15:54 BP 188/77 H 08/23/21 15:54 Pulse Ox 97 08/23/21 15:54 Body Mass Index 22.7 Const: Other: Awake nonverbal. No acute distress HENMT: Other: Mucous membranes dry Resp: Other: Clear to auscultation bilaterally with no rales rhonchi or wheezes Cardio: Other: No S4; positive S1-S2; no S3 murmurs rubs gallops GI: Other: Soft nontender nondistended with normoactive bowel sounds. There is no appreciable hepatosplenomegaly Extrem: Other: No edema on right; heel boot on. Left above knee amputation Results Labs CBC and Chem 7: 08/23/21 17:07 08/23/21 17:07 Labs: Laboratory Results - last 24 hr 08/23/21 08/23/21 08/23/21 17:07 17:07 17:07 MCV 85.6 MCH 26.2 L MCHC 30.6 L RDW 16.6 H Plt Count 314 D MPV 11.6 Immature Gran % (Auto) 0.5 H Neut % (Auto) 83.7 H Lymph % (Auto) 5.5 L [place] % (Auto) 10.2 Eos % (Auto) 0.0 Baso % (Auto) 0.1 Lymph # (Auto) 0.6 L [place] # (Auto) 1.1 Eos # (Auto) 0.0 Baso # (Auto) 0.0 Abs Immat Gran (auto) 0.05 H Absolute Neuts (auto) 8.9 H Absolute Nucleated RBC 0.000 Nucleated RBC % (auto) 0.0 Anion Gap 16 Estim Creat Clear Calc 43.4 Estimated GFR 60 Random Glucose 588 H* D Calcium 8.8 D Total Bilirubin 0.4 AST 10 D ALT 6 Alkaline Phosphatase 265 H D Total Protein 7.4 Albumin 3.5 D Urine Color Urine Appearance Urine pH Ur Specific [place] Urine Protein Urine Glucose (UA) Urine Ketones Urine Blood Urine Nitrite Ur Leukocyte Esterase Urine RBC Urine WBC Ur Squamous Epith Cells Ur Renal Epithelial Cell Urine Bacteria Urine Mucus Urine Yeast Phenytoin 6.1 L* 08/23/21 17:16 MCV MCH MCHC RDW Plt Count MPV Immature Gran % (Auto) Neut % (Auto) Lymph % (Auto) [place] % (Auto) Eos % (Auto) Baso % (Auto) Lymph # (Auto) [place] # (Auto) Eos # (Auto) Baso # (Auto) Abs Immat Gran (auto) Absolute Neuts (auto) Absolute Nucleated RBC Nucleated RBC % (auto) Anion Gap Estim Creat Clear Calc Estimated GFR Random Glucose Calcium Total Bilirubin AST ALT Alkaline Phosphatase Total Protein Albumin Urine Color YELLOW Urine Appearance CLOUDY Urine pH 6.0 Ur Specific Marshall 1.025 Urine Protein 2+ H Urine Glucose (UA) 250 H Urine Ketones NEG Urine Blood TRACE Urine Nitrite NEG Ur Leukocyte Esterase 2+ H Urine RBC 0 Urine WBC 5-9 H Ur Squamous Epith Cells 2+ Ur Renal Epithelial Cell 1+ Urine Bacteria NONE Urine Mucus NONE Urine Yeast 4+ Phenytoin Imaging Radiologist's Impressions: Impressions Chest X-Ray 08/23/21 16:29 IMPRESSION: No acute pulmonary disease. No significant change from prior study. Assessment and Plan (1) UTI (urinary tract infection): Status: Acute (2) Dementia: Status: Acute (3) Diabetes: Status: Acute 81-year-old female resident of local detention with a history of dementia type 2 diabetes and hypertension presents with fatigue lethargy most likely secondary to failure of outpatient therapy for UTI. In the emergency room she was given IV fluids and IV insulin for relative hyperglycemia. She will be admitted for further control of her sugars and treatment of her UTI 1. Lethargy/mental status changes; likely secondary to UTI Start IV ceftriaxone and await urine cultures. Antibiotics can be tailored to sensitivities. 2. Type 2 diabetes; poorly controlled most likely secondary to UTI. Patient only on metformin at senior care facility no insulin. Sugars usually well control Will institute sliding scale insulin... Will follow sliding scale and can add long-acting as indicated. Would not add long-acting now as unclear of requirement. 3. Hypertension Continue outpatient therapy with amlodipine. Adjust as indicated 4. Seizure disorder; not documented but on Dilantin from long-term care Will continue with current dosing and verify with daughter in the morning DNR/DNI [place] Quality Stroke Does the patient have a stroke diagnosis?: No VTE Prior VTE?: No VTE Risk Level:: Medical - moderate - high VTE Device Contraindication: Treatment Not Indicated VTE Drug Contraindication: N/A - Med Ordered
[2021-08-23 19:18] LABS: COVID-19 Test Negative (Negative)
[2021-08-23 19:21] LABS: Glucose, Whole Blood 388 mg/dL (60-115)
--- NOTE | 2021-08-23 19:49 | PC.NURSE ---
nurse to nurse report given to Brenda MENDEZ
[2021-08-23] MEDS: Sodium Chloride 0.45 % 1,000 ML 100 ML IVCONT (20:34)
[2021-08-23 22:28] LABS: Glucose, Whole Blood 339 mg/dL (60-115)
[2021-08-23] MEDS: Enoxaparin Sodium 40 MG/0.4 ML SYRINGE SUBCUT (22:29)
[2021-08-23] MEDS: Insulin Lispro 100 UNIT/ML 3 ML VIAL SUBCUT (22:30)
[2021-08-23] MEDS: cefTRIAXone sodium 1 GM in 0.9 % Sodium Chloride 50 ML IV (22:30)
[2021-08-23 23:48] VITALS: BP 151/69; PULSE 86; RESP 16; TEMP 36; O2SAT 92
--- NOTE | 2021-08-24 00:17 | PC.NURSE ---
P pressure injury coocyx area chronic I unable to obtain picture with camera ,consent from HCP on the chart,picture of wound obtained and send via [employer] to Dr. Kim,consult sent to wound nurse,area cleansed with normal saline and foam eric applied E awaiting new orders
[2021-08-24 04:00] VITALS: BP 146/65; PULSE 63; RESP 17; TEMP 36; O2SAT 92
[2021-08-24 05:42] LABS: Basophils Percent Auto 0.2 % (0-2); Eosinophils Percent Auto 0.1 % (0-4); Hematocrit 35.2 % (37-47); Hemoglobin 10.4 g/dl (12.0-16.0); Imm Gran Abs Auto 0.06 X10*3/uL (0.00-0.03); Imm Gran Pct Auto 0.5 % (0.0-0.4); Lymphocytes Absolute Auto 0.8 X10*3/uL (1.2-4.9); MANUAL DIFF FLAG SCAN; Mean Corpuscular HGB Conc 29.5 g/dl (31.0-35.0); Mean Corpuscular Hemoglobin 26.1 pg (27.0-33.0); Mean Corpuscular Volume 88.2 fL (80-98); Monocytes Absolute Auto 1.7 X10*3/uL (0.1-1.2); Monocytes Percent Auto 14.5 % (2-11); Neutrophils Absolute Auto 9.3 X10*3/uL (2.0-8.3); Neutrophils Percent Auto 77.7 % (45-73); Platelet Count 292 X10*3/uL (160-400); Red Blood Count 3.99 X10*6/uL (4.20-5.50); Red Cell Distribution Width 16.7 % (11.0-16.0); SCAN SMEAR FLAG 1; White Blood Count 11.9 X10*3/uL (4.8-10.8)
[2021-08-24] MEDS: Omeprazole 20 MG CAPSULE.DR PO ×2 (06:09→16:05)
[2021-08-24 06:11] LABS: Anion Gap 12 (12-20); Blood Urea Nitrogen 36 mg/dL (9-16); Calcium 8.8 mg/dL (8.4-10.2); Carbon Dioxide 26 mmol/L (22-29); Chloride 115 mmol/L (96-108); Creatinine Clr Calc Pharmacy 52.7; Estimated Glomerular Filt Rate > 60; Glucose Random 205 mg/dL (60-115); Potassium 3.4 mmol/L (3.3-5.1); Sodium 150 mmol/L (135-145)
[2021-08-24] MEDS: Sodium Chloride 0.45 % 1,000 ML 100 ML IVCONT (06:11)
[2021-08-24 06:12] LABS: SLIDE REVIEW VERIFIED
[2021-08-24 07:07] VITALS: BP 180/78; PULSE 72; RESP 19; TEMP 36.6; O2SAT 98
[2021-08-24 07:17] LABS: Glucose, Whole Blood 221 mg/dL (60-115)
[2021-08-24] MEDS: Phenytoin Chewable 50 MG TAB.CHEW PO ×2 (07:49→16:04)
[2021-08-24] MEDS: Phenytoin Sodium Extended 100 MG CAPSULE PO ×2 (07:49→14:15)
[2021-08-24] MEDS: Escitalopram Oxalate 5 MG TABLET PO (07:49)
[2021-08-24] MEDS: amLODIPine Besylate 5 MG TABLET PO (07:49)
[2021-08-24] MEDS: Ferrous Sulfate 324 MG TABLET.DR PO (07:49)
[2021-08-24] MEDS: Collagenase Clostridium Hist. 30 GM TUBE 1 APPL TOPICAL (07:50)
[2021-08-24] MEDS: Fluticasone Propionate Nasal 16 GM SPRAY 2 SPRAY NOSTRIL-B (07:50)
[2021-08-24] MEDS: Insulin Lispro 100 UNIT/ML 3 ML VIAL SUBCUT ×4 (07:53→20:46)
[2021-08-24] MEDS: traMADoL HCL 50 MG TABLET PO ×2 (09:25→16:27)
[2021-08-24] MEDS: Acetaminophen 325 MG TABLET 650 MG PO (09:25)
[2021-08-24 11:29] VITALS: BP 143/63; PULSE 68; RESP 17; TEMP 36.7; O2SAT 95
[2021-08-24 11:35] LABS: Glucose, Whole Blood 180 mg/dL (60-115)
--- NOTE | 2021-08-24 12:04 | P.PNIM_ITS ---
Subjective Subjective Date of Service: 08/24/21 Interval History: More alert today. C/o pain lower back and buttocks Review of Systems Denies chest pain Denies shortness of breath Denies nausea vomiting diarrhea Physical Exam Vital Signs: Vital Signs: Last Vital Signs Temp 98.0 F 08/24/21 11:29 Pulse 68 08/24/21 11:29 Resp 17 08/24/21 11:29 BP 143/63 H 08/24/21 11:29 Pulse Ox 95 08/24/21 11:29 Body Mass Index 22.7 Const: Other: More awake..interactive. HENMT: Other: Mucous membranes dry Resp: Other: Clear to auscultation bilaterally with no rales rhonchi or wheezes Cardio: Other: No S4; positive S1-S2; no S3 murmurs rubs gallops GI: Other: Soft nontender nondistended with normoactive bowel sounds. There is no appreciable hepatosplenomegaly Extrem: Other: No edema on right; heel boot on. Left above knee amputation Objective Data Active Medications Acetaminophen (Acetaminophen 325 Mg Tablet) 650 mg PO Q6H PRN PRN Reason: Pain, Moderate (Pain Scale 4-6 Last Admin: 08/24/21 09:25 Dose: 650 mg Documented by: MARJORIE Amlodipine Besylate (Amlodipine Besylate 5 Mg Tablet) 5 mg PO DAILY [facility]; Protocol Last Admin: 08/24/21 07:49 Dose: 5 mg Documented by: MARJORIE Collagenase (Collagenase Clostridium Hist. 30 Gm Tube) 1 appl TOPICAL DAILY [facility]; Protocol Last Admin: 08/24/21 07:50 Dose: 1 appl Documented by: MARJORIE Enoxaparin Sodium (Enoxaparin Sodium 40 Mg/0.4 Ml Syringe) 40 mg SUBCUT Q24H [facility] Last Admin: 08/23/21 22:29 Dose: 40 mg Documented by: DAMION Erythromycin (Erythromycin Base 0.5% Oph Oin 1 Gm Tube) 1 cm EYE-BOTH MOTH@2100 [facility] Escitalopram Oxalate (Escitalopram Oxalate 5 Mg Tablet) 5 mg PO DAILY [facility] Last Admin: 08/24/21 07:49 Dose: 5 mg Documented by: MARJORIE Ferrous Sulfate (Ferrous Sulfate 324 Mg Tablet.) 324 mg PO DAILY [facility] Last Admin: 08/24/21 07:49 Dose: 324 mg Documented by: MARJORIE Fluticasone Propionate (Fluticasone Propionate Nasal 16 Gm [place]) 2 spray NOSTRIL-B DAILY [facility] Last Admin: 08/24/21 07:50 Dose: 2 spray Documented by: MARJORIE Sodium Chloride () 1,000 mls @ 100 mls/hr IVCONT .Q10H [facility] Last Admin: 08/24/21 06:11 Dose: 100 mls/hr Documented by: MAURICIO Ceftriaxone Sodium 1 gm/ (Sodium Chloride) 50 mls @ 100 mls/hr IV Q24H [facility] Last Infusion: 08/23/21 23:36 Dose: 0 mls/hr Documented by: DAMION Insulin Human Lispro (Insulin Lispro 100 Unit/Ml 3 Ml Vial) 0 unit SUBCUT QIDACHS [facility]; Protocol Last Admin: 08/24/21 11:53 Dose: 2 unit Documented by: MARJORIE Latanoprost (Latanoprost 0.005 % Ophth Christa 2.5 Ml Drops) 1 drop EYE-BOTH DAILY@1700 [facility] Non-Formulary Medication (Methenamine Hippurate) 1 gm PO BID@0800,1700 [facility] Non-Formulary Medication (Memantine) 21 mg PO DAILY@1700 [facility] Omeprazole (Omeprazole 20 Mg Capsule.Dr) 20 mg PO BID@0630,1630 [facility] Last Admin: 08/24/21 06:09 Dose: 20 mg Documented by: MAURICIO Phenytoin (Phenytoin Chewable 50 Mg Tab.Chew) 50 mg PO BID@0800,1700 [facility] Last Admin: 08/24/21 07:49 Dose: 50 mg Documented by: MARJORIE Phenytoin Sodium (Phenytoin Sodium Extended 100 Mg Capsule) 100 mg PO BID@0800,1300 [facility] Last Admin: 08/24/21 07:49 Dose: 100 mg Documented by: MARJORIE Sodium Chloride (0.9 % Sodium Chloride Flush 3 Ml Syringe) 3 ml IVFLUSH QSHIFT [facility] Last Admin: 08/24/21 07:53 Dose: Not Given Documented by: MARJORIE Non-Admin Reason: IV Running Tramadol HCl (Tramadol Hcl 50 Mg Tablet) 50 mg PO Q6H PRN PRN Reason: Pain, Moderate (Pain Scale 4-6 Last Admin: 08/24/21 09:25 Dose: 50 mg Documented by: MARJORIE Labs CBC & Chem 7: 08/24/21 04:50 08/24/21 04:50 Labs: Laboratory Results - last 24 hr 08/23/21 08/23/21 08/23/21 17:07 17:07 17:07 MCV 85.6 MCH 26.2 L MCHC 30.6 L RDW 16.6 H Plt Count 314 D MPV 11.6 Immature Gran % (Auto) 0.5 H Neut % (Auto) 83.7 H Lymph % (Auto) 5.5 L [place] % (Auto) 10.2 Eos % (Auto) 0.0 Baso % (Auto) 0.1 Lymph # (Auto) 0.6 L [place] # (Auto) 1.1 Eos # (Auto) 0.0 Baso # (Auto) 0.0 Abs Immat Gran (auto) 0.05 H Absolute Neuts (auto) 8.9 H Absolute Nucleated RBC 0.000 Nucleated RBC % (auto) 0.0 Smear Tech's Comments Anion Gap 16 Estim Creat Clear Calc 43.4 Estimated GFR 60 POC Glucose Random Glucose 588 H* D Calcium 8.8 D Total Bilirubin 0.4 AST 10 D ALT 6 Alkaline Phosphatase 265 H D Total Protein 7.4 Albumin 3.5 D Urine Color Urine Appearance Urine pH Ur Specific [place] Urine Protein Urine Glucose (UA) Urine Ketones Urine Blood Urine Nitrite Ur Leukocyte Esterase Urine RBC Urine WBC Ur Squamous Epith Cells Ur Renal Epithelial Cell Urine Bacteria Urine Mucus Urine Yeast Phenytoin 6.1 L* COVID-19 ([facility]) COVID-19 Clin Com 08/23/21 08/23/21 08/23/21 17:16 18:59 19:06 MCV MCH MCHC RDW Plt Count MPV Immature Gran % (Auto) Neut % (Auto) Lymph % (Auto) [place] % (Auto) Eos % (Auto) Baso % (Auto) Lymph # (Auto) [place] # (Auto) Eos # (Auto) Baso # (Auto) Abs Immat Gran (auto) Absolute Neuts (auto) Absolute Nucleated RBC Nucleated RBC % (auto) Smear Tech's Comments Anion Gap Estim Creat Clear Calc Estimated GFR POC Glucose 388 H* Random Glucose Calcium Total Bilirubin AST ALT Alkaline Phosphatase Total Protein Albumin Urine Color YELLOW Urine Appearance CLOUDY Urine pH 6.0 Ur Specific [place] 1.025 Urine Protein 2+ H Urine Glucose (UA) 250 H Urine Ketones NEG Urine Blood TRACE Urine Nitrite NEG Ur Leukocyte Esterase 2+ H Urine RBC 0 Urine WBC 5-9 H Ur Squamous Epith Cells 2+ Ur Renal Epithelial Cell 1+ Urine Bacteria NONE Urine Mucus NONE Urine Yeast 4+ Phenytoin COVID-19 ([facility]) Negative COVID-19 Clin Com See Note 08/23/21 08/24/21 08/24/21 22:23 04:50 04:50 MCV 88.2 MCH 26.1 L MCHC 29.5 L RDW 16.7 H Plt Count 292 MPV 12.0 Immature Gran % (Auto) 0.5 H Neut % (Auto) 77.7 H Lymph % (Auto) 7.0 L [place] % (Auto) 14.5 H Eos % (Auto) 0.1 Baso % (Auto) 0.2 Lymph # (Auto) 0.8 L [place] # (Auto) 1.7 H Eos # (Auto) 0.0 Baso # (Auto) 0.0 Abs Immat Gran (auto) 0.06 H Absolute Neuts (auto) 9.3 H Absolute Nucleated RBC 0.000 Nucleated RBC % (auto) 0.0 Smear Tech's Comments VERIFIED Anion Gap 12 Estim Creat Clear Calc 52.7 Estimated GFR > 60 POC Glucose 339 H Random Glucose 205 H D Calcium 8.8 Total Bilirubin AST ALT Alkaline Phosphatase Total Protein Albumin Urine Color Urine Appearance Urine pH Ur Specific [place] Urine Protein Urine Glucose (UA) Urine Ketones Urine Blood Urine Nitrite Ur Leukocyte Esterase Urine RBC Urine WBC Ur Squamous Epith Cells Ur Renal Epithelial Cell Urine Bacteria Urine Mucus Urine Yeast Phenytoin COVID-19 ([facility]) COVID-19 Clin Com 08/24/21 08/24/21 07:10 11:31 MCV MCH MCHC RDW Plt Count MPV Immature Gran % (Auto) Neut % (Auto) Lymph % (Auto) [place] % (Auto) Eos % (Auto) Baso % (Auto) Lymph # (Auto) [place] # (Auto) Eos # (Auto) Baso # (Auto) Abs Immat Gran (auto) Absolute Neuts (auto) Absolute Nucleated RBC Nucleated RBC % (auto) Smear Tech's Comments Anion Gap Estim Creat Clear Calc Estimated GFR POC Glucose 221 H 180 H Random Glucose Calcium Total Bilirubin AST ALT Alkaline Phosphatase Total Protein Albumin Urine Color Urine Appearance Urine pH Ur Specific [place] Urine Protein Urine Glucose (UA) Urine Ketones Urine Blood Urine Nitrite Ur Leukocyte Esterase Urine RBC Urine WBC Ur Squamous Epith Cells Ur Renal Epithelial Cell Urine Bacteria Urine Mucus Urine Yeast Phenytoin COVID-19 ([facility]) COVID-19 Clin Com Microbiology Microbiology Results: Microbiology 08/23/21 Unknown Urine Culture - Preliminary Urine Catheterized - Straight Catheter No growth to date. Assessment and Plan (1) Acute hypernatremia: Status: Acute (2) Acute dehydration: Status: Acute Assessment and Plan: 81-year-old female resident of local senior care with a history of dementia type 2 diabetes and hypertension presents with fatigue lethargy most likely secondary to failure of outpatient therapy for UTI. 1. Lethargy/mental status changes; likely secondary to UTI Start IV ceftriaxone and await urine cultures. Antibiotics can be tailored to sensitivities. 2.Hypernatremia: Calculated FWD 1.8 liters Increase IVF(1/2NSS). Follow up labs in am 3. Type 2 diabetes; poorly controlled most likely secondary to UTI. [facility] no insulin. Will institute sliding scale insulin... Will follow sliding scale and can add long-acting as indicated. Would not add long-acting now as unclear of requirement. 4. Hypertension Continue outpatient therapy with amlodipine. Adjust as indicated 5. Seizure disorder; not documented but on Dilantin from long-term care Will continue with current dosing and verify with daughter in the morning DNR/DNI Lovenox Quality Stroke Does the patient have a stroke diagnosis?: No VTE Prior VTE?: No VTE Risk Level:: Medical - moderate - high VTE Device Contraindication: Treatment Not Indicated VTE Drug Contraindication: N/A - Med Ordered
[2021-08-24] MEDS: Sodium Chloride 0.45 % 1,000 ML 125 ML IVCONT (12:52)
[2021-08-24 16:00] VITALS: BP 179/81; PULSE 65; RESP 18; TEMP 36.7; O2SAT 96
[2021-08-24 16:02] LABS: Glucose, Whole Blood 167 mg/dL (60-115)
[2021-08-24] MEDS: Latanoprost 0.005 % Ophth Sol 2.5 ML DROPS 1 DROP EYE-BOTH (16:04)
--- NOTE | 2021-08-24 16:11 | MHC.CM.PN ---
Addendum entered by Michelle Bentley 08/24/21 16:15: IMM REVIEWED WITH LARS VIA T/C. COPY EMAILED TO HER AT Original Note: CM CONTACTED PTS DAUGHTER/HCP, LARS ([phone]) TO COMPLETE [facility]ER PT IS A LTC RESIDENT OF [facility] PT USES A WHEEL CHAIR FOR MOBILITY PTS PCP IS SANDY PATRICIA PT HAS A HCP, MOLST AND POA ON FILE OF NOTE: A NEW MOLST WAS SENT WITH PT THIS ADMISSION, IT IS DIFFERENT THAT THE ONE IN EMR. LARS ALSO REPORTS SHE IS THE PRIMARY HCP. SHE REPORTS IF HER SISTER MICHELLE IS CONTACTED, SHE WILL JUST REQUEST THAT LARS BE CALLED WELL. LARS REPORTS IF SHE IS CONTACTED, SHE WILL UPDATE FAMILY SO THAT ONLY ONE POINT OF CONTACT IS NEEDED LARS ALSO REPORTS SHE PREFERS THE NUMBER ABOVE BE USED IT IS HER CELL PHONE
[2021-08-24] MEDS: Dextrose 5 % 1,000 ML 80 ML IVCONT (17:36)
[2021-08-24 20:00] VITALS: BP 167/70; PULSE 66; RESP 18; TEMP 36.9; O2SAT 96
[2021-08-24] MEDS: Enoxaparin Sodium 40 MG/0.4 ML SYRINGE SUBCUT (20:38)
[2021-08-24] MEDS: cefTRIAXone sodium 1 GM in 0.9 % Sodium Chloride 50 ML IV (20:39)
[2021-08-24 20:50] LABS: Glucose, Whole Blood 261 mg/dL (60-115)
[2021-08-24 23:24] VITALS: BP 150/85; PULSE 69; RESP 18; TEMP 37.2; O2SAT 99
[2021-08-25 03:32] VITALS: BP 158/72; PULSE 71; RESP 18; TEMP 36.9; O2SAT 96
[2021-08-25] MEDS: Dextrose 5 % 1,000 ML 80 ML IVCONT (05:31)
[2021-08-25 06:26] LABS: Hematocrit 30.9 % (37-47); Hemoglobin 9.5 g/dl (12.0-16.0); Mean Corpuscular HGB Conc 30.7 g/dl (31.0-35.0); Mean Corpuscular Volume 84.7 fL (80-98); Mean Platelet Volume 11.1 fL (9.4-12.3); Platelet Count 216 X10*3/uL (160-400); Red Blood Count 3.65 X10*6/uL (4.20-5.50); Red Cell Distribution Width 16.3 % (11.0-16.0); White Blood Count 10.1 X10*3/uL (4.8-10.8)
[2021-08-25 06:48] LABS: Alanine Aminotransferase 6 U/L (0-31); Albumin Level 2.8 g/dL (3.5-5.0); Alkaline Phosphatase 207 U/L (39-117); Anion Gap 11 (12-20); Aspartate Amino Transferase 12 U/L (5-31); Bilirubin Total 0.5 mg/dL (0.0-1.0); Blood Urea Nitrogen 18 mg/dL (9-16); Calcium 7.7 mg/dL (8.4-10.2); Carbon Dioxide 24 mmol/L (22-29); Chloride 108 mmol/L (96-108); Creatinine Clr Calc Pharmacy 60.9; Estimated Glomerular Filt Rate > 60; Glucose Fasting 329 mg/dL (60-99); Potassium 2.9 mmol/L (3.3-5.1); Sodium 140 mmol/L (135-145); Total Protein 5.8 g/dL (6.5-8.0)
[2021-08-25 07:22] VITALS: BP 180/71; PULSE 71; RESP 17; TEMP 36.8; O2SAT 96
[2021-08-25] MEDS: Insulin Lispro 100 UNIT/ML 3 ML VIAL SUBCUT ×4 (07:46→21:34)
[2021-08-25] MEDS: Escitalopram Oxalate 5 MG TABLET PO (07:47)
[2021-08-25] MEDS: Acetaminophen 325 MG TABLET 650 MG PO (07:47)
[2021-08-25] MEDS: Ferrous Sulfate 324 MG TABLET.DR PO (07:48)
[2021-08-25] MEDS: traMADoL HCL 50 MG TABLET PO ×2 (07:48→18:38)
[2021-08-25] MEDS: Phenytoin Chewable 50 MG TAB.CHEW PO ×2 (07:48→16:51)
[2021-08-25] MEDS: Phenytoin Sodium Extended 100 MG CAPSULE PO (07:48)
[2021-08-25] MEDS: amLODIPine Besylate 5 MG TABLET PO (07:48)
[2021-08-25] MEDS: Collagenase Clostridium Hist. 30 GM TUBE 1 APPL TOPICAL (07:51)
[2021-08-25] MEDS: Fluticasone Propionate Nasal 16 GM SPRAY 2 SPRAY NOSTRIL-B (07:51)
[2021-08-25 07:55] LABS: Glucose, Whole Blood 329 mg/dL (60-115)
[2021-08-25] MEDS: Potassium Chloride/H20 10 MEQ/100 ML PIGGYBACK 100 MEQ IV ×4 (08:21→11:37)
[2021-08-25 08:26] LABS: Magnesium 1.7 mg/dL (1.6-2.6)
[2021-08-25] MEDS: Sodium Chloride 0.45 % 1,000 ML 100 ML IVCONT ×2 (08:53→18:34)
--- NOTE | 2021-08-25 10:30 | MHC.CDI.CONC ---
CDI Concurrent Query Documentation Clarification: PHYSICIAN'S DOCUMENTATION REQUEST Date of Query: 08/25/21 1030 Patient Name: Tammie Arguello Admit Date: 08/23/21 Dear Doctor, A review of the medical record indicates additional documentation may be needed. Please review below and update the documentation accordingly. Clinical Indicators: Risk Factors/Clinical Indicators/Treatments Patient arrived altered mental status and lethargic secondary to Urinary tract infection. Sent to ED due to the mental status changes. IV Ceftriaxone Chronic Dementia. Based on the above, please further specify, in the Progress Notes, the known or suspected type of the documented encephalopathy: Encephalopathy- treating, not treating, resolved etc. Metabolic Toxic Toxic metabolic Due to a specified condition (such as UTI, hyponatremia, CVA, etc.) Other (please specify) Unable to determine Use of terms such as suspected, likely, concern for, or probable (associated with a specific diagnosis that is being evaluated, monitored, or treated as if it exists) are acceptable and can be coded in the inpatient setting, when documented at the time of discharge. Thank you, Missy Morales [facility], CDIS Extension: [phone] Please use your independent medical judgment in providing your response. THIS QUERY IS PART OF THE PERMANENT MEDICAL RECORD Provider Response: Other Other Diagnosis: Multifactorial; unable to determine
--- NOTE | 2021-08-25 11:05 | HO.PM.IMPN ---
Subjective Subjective Date of Service: 08/25/21 Interval History: More alert today. C/o pain lower back and buttocks Review of Systems Denies chest pain Denies shortness of breath Denies nausea vomiting diarrhea Physical Exam Vital Signs: Vital Signs: Last Vital Signs Temp 98.2 F 08/25/21 07:22 Pulse 71 08/25/21 07:22 Resp 17 08/25/21 07:22 BP 180/71 H 08/25/21 07:22 Pulse Ox 96 08/25/21 07:22 Body Mass Index 22.7 Const: Other: Staff noticed difficulty swallowing this a.m.. Remains more alert than admission HENMT: Other: Mucous membranes moist Resp: Other: Clear to auscultation bilaterally with no rales rhonchi or wheezes Cardio: Other: No S4; positive S1-S2; no S3 murmurs rubs gallops GI: Other: Soft nontender nondistended with normoactive bowel sounds. There is no appreciable hepatosplenomegaly Extrem: Other: No edema on right; heel boot on. Left above knee amputation Objective Data Active Medications Acetaminophen (Acetaminophen 325 Mg Tablet) 650 mg PO Q6H PRN PRN Reason: Pain, Moderate (Pain Scale 4-6 Last Admin: 08/25/21 07:47 Dose: 650 mg Documented by: MARJORIE Amlodipine Besylate (Amlodipine Besylate 5 Mg Tablet) 5 mg PO DAILY [facility]; Protocol Last Admin: 08/25/21 07:48 Dose: 5 mg Documented by: MARJORIE Collagenase (Collagenase Clostridium Hist. 30 Gm Tube) 1 appl TOPICAL DAILY [facility]; Protocol Last Admin: 08/25/21 07:51 Dose: 1 appl Documented by: MARJORIE Enoxaparin Sodium (Enoxaparin Sodium 40 Mg/0.4 Ml Syringe) 40 mg SUBCUT Q24H [facility] Last Admin: 08/24/21 20:38 Dose: 40 mg Documented by: DAMION Erythromycin (Erythromycin Base 0.5% Oph Oin 1 Gm Tube) 1 cm EYE-BOTH MOTH@2100 [facility] Escitalopram Oxalate (Escitalopram Oxalate 5 Mg Tablet) 5 mg PO DAILY [facility] Last Admin: 08/25/21 07:47 Dose: 5 mg Documented by: MARJORIE Ferrous Sulfate (Ferrous Sulfate 324 Mg Tablet.) 324 mg PO DAILY [facility] Last Admin: 08/25/21 07:48 Dose: 324 mg Documented by: MARJORIE Fluticasone Propionate (Fluticasone Propionate Nasal 16 Gm [place]) 2 spray NOSTRIL-B DAILY [facility] Last Admin: 08/25/21 07:51 Dose: 2 spray Documented by: MARJORIE Ceftriaxone Sodium 1 gm/ (Sodium Chloride) 50 mls @ 100 mls/hr IV Q24H [facility] Last Infusion: 08/24/21 21:30 Dose: 0 mls/hr Documented by: DAMION Potassium Chloride () 10 meq in 100 mls @ 100 mls/hr IV Q1H [facility] Stop: 08/25/21 11:59 Last Admin: 08/25/21 10:42 Dose: 100 mls/hr Documented by: MARJORIE Sodium Chloride () 1,000 mls @ 100 mls/hr IVCONT .Q10H [facility] Last Admin: 08/25/21 08:53 Dose: 100 mls/hr Documented by: MARJORIE Insulin Human Lispro (Insulin Lispro 100 Unit/Ml 3 Ml Vial) 0 unit SUBCUT QIDACHS [facility]; Protocol Last Admin: 08/25/21 07:46 Dose: 8 unit Documented by: MARJORIE Latanoprost (Latanoprost 0.005 % Ophth Christa 2.5 Ml Drops) 1 drop EYE-BOTH DAILY@1700 [facility] Last Admin: 08/24/21 16:04 Dose: 1 drop Documented by: DAMION Non-Formulary Medication (Methenamine Hippurate) 1 gm PO BID@0800,1700 [facility] Non-Formulary Medication (Memantine) 21 mg PO DAILY@1700 [facility] Omeprazole (Omeprazole 20 Mg Capsule.Dr) 20 mg PO BID@0630,1630 [facility] Last Admin: 08/25/21 06:21 Dose: Not Given Documented by: CRYSTAL Non-Admin Reason: spit it out Phenytoin (Phenytoin Chewable 50 Mg Tab.Chew) 50 mg PO BID@0800,1700 [facility] Last Admin: 08/25/21 07:48 Dose: 50 mg Documented by: MARJORIE Phenytoin Sodium (Phenytoin Sodium Extended 100 Mg Capsule) 100 mg PO BID@0800,1300 [facility] Last Admin: 08/25/21 07:48 Dose: 100 mg Documented by: MARJORIE Sodium Chloride (0.9 % Sodium Chloride Flush 3 Ml Syringe) 3 ml IVFLUSH [facility] Last Admin: 08/25/21 07:50 Dose: Not Given Documented by: MARJORIE Non-Admin Reason: IV Running Sodium Chloride (0.9 % Sodium Chloride Flush 3 Ml Syringe) 3 ml IVFLUSH [facility] Last Admin: 08/25/21 07:50 Dose: Not Given Documented by: MARJORIE Non-Admin Reason: IV Running Sodium Chloride (0.9 % Sodium Chloride Flush 3 Ml Syringe) 3 ml IVFLUSH [facility] Last Admin: 08/25/21 07:50 Dose: Not Given Documented by: MARJORIE Non-Admin Reason: IV Running Tramadol HCl (Tramadol Hcl 50 Mg Tablet) 50 mg PO Q6H PRN PRN Reason: Pain, Moderate (Pain Scale 4-6 Last Admin: 08/25/21 07:48 Dose: 50 mg Documented by: MARJORIE Labs CBC & Chem 7: 08/25/21 06:10 08/25/21 06:10 Labs: Laboratory Results - last 24 hr 08/24/21 08/24/21 08/24/21 11:31 15:44 20:39 MCV MCH MCHC RDW Plt Count MPV Absolute Nucleated RBC Nucleated RBC % (auto) Anion Gap Estim Creat Clear Calc Estimated GFR POC Glucose 180 H 167 H 261 H Fasting Glucose Calcium Magnesium Total Bilirubin AST ALT Alkaline Phosphatase Total Protein Albumin 08/25/21 08/25/21 08/25/21 06:10 06:10 07:42 MCV 84.7 MCH 26.0 L MCHC 30.7 L RDW 16.3 H Plt Count 216 D MPV 11.1 Absolute Nucleated RBC 0.000 Nucleated RBC % (auto) 0.0 Anion Gap 11 L Estim Creat Clear Calc 60.9 Estimated GFR > 60 POC Glucose 329 H Fasting Glucose 329 H Calcium 7.7 L D Magnesium 1.7 Total Bilirubin 0.5 AST 12 ALT 6 Alkaline Phosphatase 207 H D Total Protein 5.8 L D Albumin 2.8 L Microbiology Microbiology Results: Microbiology 08/23/21 Unknown Urine Culture - Preliminary Urine Catheterized - Straight Catheter Culture in progress. Assessment and Plan (1) Acute hypernatremia: Status: Acute (2) Acute UTI: Status: Acute Assessment and Plan: 81-year-old female resident of local correction with a history of dementia type 2 diabetes and hypertension presents with fatigue lethargy most likely secondary to failure of outpatient therapy for UTI. 1. Lethargy/mental status changes; likely secondary to UTI Start IV ceftriaxone and await urine cultures. Antibiotics can be tailored to sensitivities. Noted to be having difficulty swallowing by staff Will ask speech to do swallow eval 2.Hypernatremia: Calculated FWD 1.8 liters Given D5W overnight with normalization of sodium. Will switch back to half normal saline pending swallow eval 3. Type 2 diabetes; poorly controlled most likely secondary to UTI. Patient only on metformin at group home facility no insulin. Will institute sliding scale insulin... Will follow sliding scale and can add long-acting as indicated. Would not add long-acting now as unclear of requirement. 4. Hypertension Continue outpatient therapy with amlodipine. Adjust as indicated 5. Seizure disorder; not documented but on Dilantin from long-term care Will continue with current dosing and verify with daughter in the morning DNR/DNI Lovenox Quality Stroke Does the patient have a stroke diagnosis?: No VTE Prior VTE?: No VTE Risk Level:: Medical - moderate - high VTE Device Contraindication: Treatment Not Indicated VTE Drug Contraindication: N/A - Med Ordered
--- NOTE | 2021-08-25 11:14 | PC.NURSE ---
Skin/Assessment completed. Patient has a stage 2 pressure ulcer seen on admission. Santyl applied cover with foam dressing. Right heel has a foam boot on for protection. No other skin issues noted at this time.
--- NOTE | 2021-08-25 11:24 | MHC.SL.SWA ---
Speech Pathologist Impression: Risk of Aspiration Oralpharyngeal Dysphagia Risk of Aspiration Due to: Neurological Condition Poor PO Intake Reduced Cognition Dysphasia Diet Status: Downgrade Liquid Consistency and Strategies for Safe Swallow: Liquid Intake Recommendation: Honey Thick Liquid Intake Strategies: Small Sips No Straws Solid Food Consistency: Dietary Recommendations: Pureed (NDD1) Additional Modifications to Solid Foods: Incomplete laryngeal elevation and moderately delayed swallow trigger. Patient coughed when drinking thin liquid and nectar thick liquid. No overt s/s of aspiration when drinking honey thick liquid. Patient has natural dentition top and bottom jaws, but patient presents with decreased awareness of bolus, significant oral holding, slowed/disorganized mastication and pocketing of hard solids. Patient does not follow commands/cues, and displays severely impaired oral phase. Improved oral preparatory phase and good clearance when eating pureed solid. Recommend PUREED (NDD1) solids and HONEY THICK liquids, with pills CRUSHED in PUREE. Patient requires total 1:1 assistance feeding, strict aspiration precautions, and the following compensatory strategies: Decrease distractions during mealtime. Patient bites down on the spoon. Recommend position spoon at 45 degree angle to discourage biting. Patient does not follow command to open her mouth, but will open her mouth when presented with dry spoon. Recommend present dry spoon between bites in order to check oral cavity for clearance. Liquids by teaspoon or controlled cup sip. Patient did accept limited PO trials before refusing more despite encouragement, turning her face away, and refusing to open her mouth. It is unclear whether patient will consume entire meal. MANAGER HYDRAULIC will continue to follow to monitor tolerance, re-assess potential for upgrade, and provide education/support. Diet order has been updated by MANAGER HYDRAULIC. Update sent via [employer] It Message to RN, RD, and MD. Oral Medication Intake: Crushed with Puree Compensatory Strategies and Precautions to be Taken for Safe Swallow: Sitting Upright (90 deg) No Straw Liquids from Spoon Small Bites and Sips Alternate Liquids/Solids Rate of Ingestion Change Oral Check Supervision While Eating and Drinking for Safe Swallow: Total Assistance Swallowing Recommended Treatments: Compens. Strategy Educat. Recommendation for Speech: Inpatient Speech Therapy Comment: MANAGER HYDRAULIC will continue to follow. Frequency/Duration: Daily M-F during inpatient stay. Residential Director Clinican/Clinical Fellow: No Supervisory Statement: I have reviewed and agree with the student/clinical fellow's documentation: N/A Speech Language Pathologist: Marcy Shelton M.A., [facility]-MANAGER HYDRAULIC
[2021-08-25 12:00] VITALS: BP 153/95; PULSE 62; RESP 18; TEMP 36.3; O2SAT 98
[2021-08-25 12:00] LABS: Glucose, Whole Blood 277 mg/dL (60-115)
--- NOTE | 2021-08-25 12:04 | MHC.CM.PN ---
EMR REVIEWED, PER HOSPITALIST, PT NOT SWALLOWING WELL, SEEN BY SPEECH PRIOR TO THIS NOTE AND HAS RECOMMENDED PUREED DIET/HONEY THICK LIQUIDS, PT'S BLOOD CULTURES STILL PENDING, NO D/C PLANNED FOR TODAY, CM WILL CONT TO FOLLOW. D/C PLAN: RETURN TO [facility], [facility] FOR BLS TRANSPORT
[2021-08-25 15:30] VITALS: BP 165/72; PULSE 60; RESP 18; TEMP 36.3; O2SAT 98
--- NOTE | 2021-08-25 16:33 | MHC.CLN ---
NUTRITION CONSULT CONSULT DUE TO POOR INTAKE AND STAGE II WOUND TO COCCYX. DIET=DIABETIC 2000 KCAL, PUREE (NDD1), HONEY THICK LIQUIDS. TAKING BITES ONLY OF FOOD. RD ADDING ENSURE PUDDING BID TO PROVIDE 340 KCAL, 8 G PROTEIN. APPEARS WELL NOURISHED WITH BMI=22.7. CONTINUE TO FOLLOW DIET AND PO INTAKE.
[2021-08-25 16:35] VITALS: BMI 22.7
[2021-08-25 16:45] LABS: Glucose, Whole Blood 185 mg/dL (60-115)
[2021-08-25] MEDS: Omeprazole 20 MG CAPSULE.DR PO (16:51)
[2021-08-25] MEDS: Latanoprost 0.005 % Ophth Sol 2.5 ML DROPS 1 DROP EYE-BOTH (16:51)
[2021-08-25] MEDS: cefTRIAXone sodium 1 GM in 0.9 % Sodium Chloride 50 ML IV (18:37)
[2021-08-25] MEDS: Enoxaparin Sodium 40 MG/0.4 ML SYRINGE SUBCUT (18:38)
[2021-08-25 19:11] VITALS: BP 150/69; PULSE 76; RESP 18; TEMP 36.3; O2SAT 98
[2021-08-25 20:05] LABS: Glucose, Whole Blood 162 mg/dL (60-115)
[2021-08-25] MEDS: Erythromycin Base 0.5% Oph Oin 1 GM TUBE 1 CM EYE-BOTH (21:39)
[2021-08-25 23:55] VITALS: BP 148/85; PULSE 88; RESP 17; TEMP 36.6; O2SAT 98
[2021-08-26 03:35] VITALS: BP 153/72; PULSE 64; RESP 17; TEMP 36.6; O2SAT 97
[2021-08-26] MEDS: Sodium Chloride 0.45 % 1,000 ML 100 ML IVCONT ×2 (04:23→14:31)
[2021-08-26 05:32] LABS: MANUAL DIFF FLAG NO
[2021-08-26 05:34] LABS: Hematocrit 28.7 % (37-47); Hemoglobin 9.1 g/dl (12.0-16.0); Imm Gran Abs Auto 0.05 X10*3/uL (0.00-0.03); Imm Gran Pct Auto 0.6 % (0.0-0.4); Lymphocytes Absolute Auto 0.6 X10*3/uL (1.2-4.9); Lymphocytes Percent Auto 6.7 % (20-40); Mean Corpuscular HGB Conc 31.7 g/dl (31.0-35.0); Mean Corpuscular Hemoglobin 26.2 pg (27.0-33.0); Mean Corpuscular Volume 82.7 fL (80-98); Mean Platelet Volume 12.2 fL (9.4-12.3); Monocytes Percent Auto 11.1 % (2-11); Neutrophils Absolute Auto 7.1 X10*3/uL (2.0-8.3); Neutrophils Percent Auto 81.6 % (45-73); Platelet Count 184 X10*3/uL (160-400); Red Blood Count 3.47 X10*6/uL (4.20-5.50); White Blood Count 8.8 X10*3/uL (4.8-10.8)
[2021-08-26 05:51] LABS: Alanine Aminotransferase < 6 U/L (0-31); Albumin Level 2.4 g/dL (3.5-5.0); Alkaline Phosphatase 175 U/L (39-117); Anion Gap 12 (12-20); Aspartate Amino Transferase 7 U/L (5-31); Bilirubin Total 0.5 mg/dL (0.0-1.0); Blood Urea Nitrogen 9 mg/dL (9-16); Calcium 7.3 mg/dL (8.4-10.2); Carbon Dioxide 23 mmol/L (22-29); Chloride 105 mmol/L (96-108); Creatinine Clr Calc Pharmacy 79.6; Estimated Glomerular Filt Rate > 60; Glucose Fasting 174 mg/dL (60-99); Potassium 2.7 mmol/L (3.3-5.1); Sodium 137 mmol/L (135-145); Total Protein 5.1 g/dL (6.5-8.0)
[2021-08-26 07:30] VITALS: BP 182/79; PULSE 63; RESP 18; TEMP 36.1; O2SAT 98
[2021-08-26 07:37] LABS: Glucose, Whole Blood 180 mg/dL (60-115)
[2021-08-26] MEDS: Insulin Lispro 100 UNIT/ML 3 ML VIAL SUBCUT ×3 (07:37→16:16)
[2021-08-26] MEDS: Phenytoin Sodium Extended 100 MG CAPSULE PO (07:38)
[2021-08-26] MEDS: Phenytoin Chewable 50 MG TAB.CHEW PO (07:38)
[2021-08-26] MEDS: Potassium Chloride/H20 10 MEQ/100 ML PIGGYBACK 100 MEQ IV ×4 (07:38→11:02)
[2021-08-26] MEDS: Escitalopram Oxalate 5 MG TABLET PO (07:38)
[2021-08-26] MEDS: amLODIPine Besylate 5 MG TABLET PO (07:38)
[2021-08-26] MEDS: Ferrous Sulfate 324 MG TABLET.DR PO (07:38)
[2021-08-26] MEDS: Fluticasone Propionate Nasal 16 GM SPRAY 2 SPRAY NOSTRIL-B (07:39)
[2021-08-26 07:41] LABS: Magnesium 1.5 mg/dL (1.6-2.6)
[2021-08-26 11:38] VITALS: BP 160/72; PULSE 73; RESP 16; TEMP 36.2; O2SAT 100
[2021-08-26 11:45] LABS: Glucose, Whole Blood 168 mg/dL (60-115)
[2021-08-26] MEDS: ondansetron HCL 4 MG/2 ML VIAL IVPUSH (11:53)
[2021-08-26] MEDS: Collagenase Clostridium Hist. 30 GM TUBE 1 APPL TOPICAL (11:56)
--- NOTE | 2021-08-26 11:59 | MHC.SL.SWA ---
Speech Pathologist Impression: Risk of Aspiration Oralpharyngeal Dysphagia Risk of Aspiration Due to: Neurological Condition Poor PO Intake Reduced Cognition Dysphasia Diet Status: Downgrade Liquid Consistency and Strategies for Safe Swallow: Liquid Intake Recommendation: NPO Solid Food Consistency: Dietary Recommendations: NPO Oral Medication Intake: NPO Supervision While Eating and Drinking for Safe Swallow: PO with RESPIRATORY CARE INSTRUCTOR Recommendation for Speech: Inpatient Speech Therapy 08/25/21 Patient seen for bedside dysphagia evaluation. Incomplete laryngeal elevation and moderately delayed swallow trigger. Patient coughed when drinking thin liquid and nectar thick liquid. No overt s/s of aspiration when drinking honey thick liquid. Patient has natural dentition top and bottom jaws, but patient presents with decreased awareness of bolus, significant oral holding, slowed/disorganized mastication and pocketing of hard solids. Patient does not follow commands/cues, and displays severely impaired oral phase. Improved oral preparatory phase and good clearance when eating pureed solid. Recommend PUREED (NDD1) solids and HONEY THICK liquids, with pills CRUSHED in PUREE with 1:1 assistance feeding, strict aspiration precautions, and the following compensatory strategies: Decrease distractions during mealtime. Patient bites down on the spoon. Recommend position spoon at 45 degree angle to discourage biting. Patient does not follow command to open her mouth, but will open her mouth when presented with dry spoon. Recommend present dry spoon between bites in order to check oral cavity for clearance. Liquids by teaspoon or controlled cup sip. Patient did accept limited PO trials before refusing more despite encouragement, turning her face away, and refusing to open her mouth. 08/26/21 Patient was seen for dysphagia treatment. Per chart review, poor PO intake and staff reports of difficulty swallowing when giving patient PO. Bed was repositioned more upright and pillows adjusted. However, patient prefers to lean to left side despite several attempts to reposition. Patient accepted half teaspoon bite of applesauce. Patient continues to bite down on utensils. Patient does not form labial seal on utensils. Teaspoon was presented at 45 degree angle and patient scraped trace amount of applesauce from spoon. Delayed pharyngeal swallow trigger. Audible swallow. Patient immediately coughed. Prolonged nonproductive/ ineffective, gurgly wet cough, and teary eyes. Patient likely aspirated on trace amount of food. Oral cavity was clear. RN was immediately notified of potential need for suctioning. RESPIRATORY CARE INSTRUCTOR recommended downgrade to NPO due to overt s/s of aspiration. Update sent via [place] Message to RN, RD, and MD. Frequency/Duration: Daily M-F during inpatient stay. Ground Source Heat Pump Technician Clinican/Clinical Fellow: Raquel Diaz Supervisory Statement: I have reviewed and agree with the student/clinical fellow's documentation: Y Speech Language Pathologist: Marcy Shelton M.A., CCC-RESPIRATORY CARE INSTRUCTOR
--- NOTE | 2021-08-26 13:34 | MHC.SLORD ---
Speech Language Pathology Order Status: Carol Means requested patient to have communication board. STEAM [employer]ANT RECORDS CLERK brought [facility] communication board and left with RN. Includes words/phrases, pictures, yes/no, and letters for spelling.
--- NOTE | 2021-08-26 14:53 | HO.PM.IMPN ---
Subjective Subjective Date of Service: 08/26/21 Interval History: Nonverbal; speech notes reviewed Review of Systems Essentially nonverbal staff reports no chest pain shortness of breath nausea Vicodin diarrhea Physical Exam Vital Signs: Vital Signs: Last Vital Signs Temp 97.1 F 08/26/21 11:38 Pulse 73 08/26/21 11:38 Resp 16 08/26/21 11:38 BP 160/72 H 08/26/21 11:38 Pulse Ox 100 08/26/21 11:38 Body Mass Index 22.7 Const: Other: Nonverbal; refusing p.o. his HENMT: Other: Mucous membranes moist Resp: Other: Clear to auscultation bilaterally with no rales rhonchi or wheezes Cardio: Other: No S4; positive S1-S2; no S3 murmurs rubs gallops GI: Other: Soft nontender nondistended with normoactive bowel sounds. There is no appreciable hepatosplenomegaly Extrem: Other: No edema on right; heel boot on. Left above knee amputation Objective Data Active Medications Acetaminophen (Acetaminophen 325 Mg Tablet) 650 mg PO Q6H PRN PRN Reason: Pain, Moderate (Pain Scale 4-6 Last Admin: 08/25/21 07:47 Dose: 650 mg Documented by: MARJORIE Amlodipine Besylate (Amlodipine Besylate 5 Mg Tablet) 5 mg PO DAILY [facility]; Protocol Last Admin: 08/26/21 07:38 Dose: 5 mg Documented by: KAITLIN Collagenase (Collagenase Clostridium Hist. 30 Gm Tube) 1 appl TOPICAL DAILY [facility]; Protocol Last Admin: 08/26/21 11:56 Dose: 1 appl Documented by: KAITLIN Enoxaparin Sodium (Enoxaparin Sodium 40 Mg/0.4 Ml Syringe) 40 mg SUBCUT Q24H [facility] Last Admin: 08/25/21 18:38 Dose: 40 mg Documented by: OSVALDO Erythromycin (Erythromycin Base 0.5% Oph Oin 1 Gm Tube) 1 cm EYE-BOTH MOTH@2100 [facility] Last Admin: 08/25/21 21:39 Dose: 1 cm Documented by: ODRISM Escitalopram Oxalate (Escitalopram Oxalate 5 Mg Tablet) 5 mg PO DAILY [facility] Last Admin: 08/26/21 07:38 Dose: 5 mg Documented by: KAITLIN Ferrous Sulfate (Ferrous Sulfate 324 Mg Tablet.) 324 mg PO DAILY [facility] Last Admin: 08/26/21 07:38 Dose: 324 mg Documented by: KAITLIN Fluticasone Propionate (Fluticasone Propionate Nasal 16 Gm [place]) 2 spray NOSTRIL-B DAILY [facility] Last Admin: 08/26/21 07:39 Dose: 2 spray Documented by: KAITLIN Ceftriaxone Sodium 1 gm/ (Sodium Chloride) 50 mls @ 100 mls/hr IV Q24H [facility] Last Infusion: 08/25/21 19:38 Dose: 0 mls/hr Documented by: RAMILA Sodium Chloride () 1,000 mls @ 100 mls/hr IVCONT .Q10H [facility] Last Admin: 08/26/21 14:31 Dose: 100 mls/hr Documented by: KAITLIN Insulin Human Lispro (Insulin Lispro 100 Unit/Ml 3 Ml Vial) 0 unit SUBCUT QIDACHS [facility]; Protocol Last Admin: 08/26/21 11:53 Dose: 2 unit Documented by: KAITLIN Latanoprost (Latanoprost 0.005 % Ophth Christa 2.5 Ml Drops) 1 drop EYE-BOTH DAILY@1700 [facility] Last Admin: 08/25/21 16:51 Dose: 1 drop Documented by: OSVALDO Non-Formulary Medication (Methenamine Hippurate) 1 gm PO BID@0800,1700 [facility] Non-Formulary Medication (Memantine) 21 mg PO DAILY@1700 [facility] Omeprazole (Omeprazole 20 Mg Capsule.) 20 mg PO BID@0630,1630 [facility] Last Admin: 08/26/21 05:54 Dose: Not Given Documented by: RAMILA Non-Admin Reason: Patient Refused Ondansetron HCl (Ondansetron Hcl 4 Mg/2 Ml Vial) 4 mg IVPUSH Q4H PRN PRN Reason: Nausea Last Admin: 08/26/21 11:53 Dose: 4 mg Documented by: KAITLIN Phenytoin (Phenytoin Chewable 50 Mg Tab.Chew) 50 mg PO BID@0800,1700 [facility] Last Admin: 08/26/21 07:38 Dose: 50 mg Documented by: KAITLIN Phenytoin Sodium (Phenytoin Sodium Extended 100 Mg Capsule) 100 mg PO BID@0800,1300 [facility] Last Admin: 08/26/21 12:08 Dose: Not Given Documented by: KAITLIN Non-Admin Reason: NPO Sodium Chloride (0.9 % Sodium Chloride Flush 3 Ml Syringe) 3 ml IVFLUSH [facility] Last Admin: 08/26/21 14:33 Dose: Not Given Documented by: KAITLIN Non-Admin Reason: IV Running Sodium Chloride (0.9 % Sodium Chloride Flush 3 Ml Syringe) 3 ml IVFLUSH [facility] Last Admin: 08/26/21 14:33 Dose: Not Given Documented by: KAITLIN Non-Admin Reason: IV Running Sodium Chloride (0.9 % Sodium Chloride Flush 3 Ml Syringe) 3 ml IVFLUSH [facility] Last Admin: 08/26/21 14:33 Dose: Not Given Documented by: KAITLIN Non-Admin Reason: IV Running Tramadol HCl (Tramadol Hcl 50 Mg Tablet) 50 mg PO Q6H PRN PRN Reason: Pain, Moderate (Pain Scale 4-6 Last Admin: 08/25/21 18:38 Dose: 50 mg Documented by: OSVALDO Labs CBC & Chem 7: 08/26/21 05:19 08/26/21 05:19 Labs: Laboratory Results - last 24 hr 08/25/21 08/25/21 08/26/21 16:41 19:50 05:19 MCV 82.7 MCH 26.2 L MCHC 31.7 RDW 16.0 Plt Count 184 MPV 12.2 Immature Gran % (Auto) 0.6 H Neut % (Auto) 81.6 H Lymph % (Auto) 6.7 L [place] % (Auto) 11.1 H Eos % (Auto) 0.0 Baso % (Auto) 0.0 Lymph # (Auto) 0.6 L [place] # (Auto) 1.0 Eos # (Auto) 0.0 Baso # (Auto) 0.0 Abs Immat Gran (auto) 0.05 H Absolute Neuts (auto) 7.1 Absolute Nucleated RBC 0.000 Nucleated RBC % (auto) 0.0 Anion Gap Estim Creat Clear Calc Estimated GFR POC Glucose 185 H 162 H Fasting Glucose Calcium Magnesium Total Bilirubin AST ALT Alkaline Phosphatase Total Protein Albumin 08/26/21 08/26/21 08/26/21 05:19 07:27 11:36 MCV MCH MCHC RDW Plt Count MPV Immature Gran % (Auto) Neut % (Auto) Lymph % (Auto) [place] % (Auto) Eos % (Auto) Baso % (Auto) Lymph # (Auto) [place] # (Auto) Eos # (Auto) Baso # (Auto) Abs Immat Gran (auto) Absolute Neuts (auto) Absolute Nucleated RBC Nucleated RBC % (auto) Anion Gap 12 Estim Creat Clear Calc 79.6 Estimated GFR > 60 POC Glucose 180 H 168 H Fasting Glucose 174 H Calcium 7.3 L Magnesium 1.5 L Total Bilirubin 0.5 AST 7 D ALT < 6 Alkaline Phosphatase 175 H Total Protein 5.1 L Albumin 2.4 L Assessment and Plan (1) Acute hypernatremia: Status: Acute (2) Acute UTI: Status: Acute (3) Dementia: Status: Acute Assessment and Plan: 81-year-old female resident of local fdc with a history of dementia type 2 diabetes and hypertension presents with fatigue lethargy most likely secondary to failure of outpatient therapy for UTI. 1. Lethargy/mental status changes: Speech notes reviewed; recommend NPO status. Long discussion with daughters (proxy) who states that mother would not want extreme measures including feeding tube. At this point in time they are requesting transfer to [facility] with consult to hospice. Agree with same 2.Hypernatremia: Normalized. Continue to follow 3. Type 2 diabetes Continue current therapies including sliding scale given NPO status 4. Hypertension Continue outpatient therapy with amlodipine as tolerated. Further adjustment based on hospice input 5. UTI Ceftriaxone tomorrow morning and then likely discharge [facility]. No further antibiotics indicated DNR/DNI Lovenox Quality Stroke Does the patient have a stroke diagnosis?: No VTE Prior VTE?: No VTE Risk Level:: Medical - moderate - high VTE Device Contraindication: Treatment Not Indicated VTE Drug Contraindication: N/A - Med Ordered
--- NOTE | 2021-08-26 14:55 | MHC.CM.PN ---
Addendum entered by Zoila Dangelo, RN 08/26/21 15:56: CM RECEIVED CALL FROM PT'S DTR JACKIE THAT SHE WANTS TO TXFR PT TO [facility] HOWEVER WANTS TO HOLD OFF ON STARTING HER ON HOSPICE JACKIE HAS NOT BEEN ABLE TO GET IN CONTACT WITH HER SISTER, [facility] OFFERING BED, CM ALSO RECEIVED MESSAGE FROM [facility] THAT PT IS QUALIFYING FOR HOSPICE. Original Note: PER HOSSPITALIST AND PT'S DTRJACKIE HAIRSTON REFERRALS WERE PLACED TO [facility] AND [facility] FOR HOSPICE CARE, [facility] WILL OFFER BED AND [facility] IS REVIEWING TO DETERMINE IF SHE WILL QUALIFY FOR HOSPICE, CM WILL CONT TO FOLLOW D/C NEEDS.
[2021-08-26 15:31] VITALS: BP 171/73; PULSE 71; RESP 16; TEMP 36; O2SAT 100
[2021-08-26 16:16] LABS: Glucose, Whole Blood 185 mg/dL (60-115)
[2021-08-26] MEDS: Latanoprost 0.005 % Ophth Sol 2.5 ML DROPS 1 DROP EYE-BOTH (16:17)
--- NOTE | 2021-08-26 17:07 | P.DS_ITS ---
DS: Providers Provider Date of Service: 08/27/21 Date of admission: 08/23/21 18:33 Primary care physician: Hetal Collado MD DS: Diagnosis Discharge Diagnosis (1) Acute hypernatremia: Status: Acute (2) Acute UTI: Status: Acute (3) Dementia: Status: Acute DS: Summary Hospital Course Hospital Course: 81 year-old female with history of dementia among multiple other medical problems, who has had recent UTI and started on Augmentin 875 mg twice a day on the .? The patient was sent in for decreased p.o. intake, increased lethargy.? She is a long-term resident of local assisted facility; daughter states that she did not respond to antibiotics.? Sent in today for mental status changes. Hospital course Admitted to [facility] on ceftriaxone. Initially with sodium of 150 found to have a free water deficit of 2 L and given a Liter of D5 with correction of sodium. Nurse noted issues swallowing pills on the 2nd day of hospitalization and a speech eval was ordered. Ultimate speech recommendation was that the patient be and p.o.. The afternoon of , long conversation with daughters. After reviewing options, they wish to bring mother to assisted facility with likely hospice initiation. They state that they have had discussions with her and she would not want any extensive med her sugars including G-tube. She will be discharged to local SNF... Further treatment based on her clinical status and family's wishes Time Spent with Patient Time attestation: Total time spent providing and/or coordinating discharge services: Discharge coordination time: Greater than 30 minutes Quality: Stroke Does the patient have a stroke diagnosis?: No Physical Exam Vital Signs: Vital Signs: Last Vital Signs Temp 96.8 F 08/26/21 15:31 Pulse 71 08/26/21 15:31 Resp 16 08/26/21 15:31 BP 171/73 H 08/26/21 15:31 Pulse Ox 100 08/26/21 15:31 Body Mass Index 22.7 DS: Data Data Completed and Pending Labs on day of discharge: Laboratory Results - last 24 hr 08/25/21 08/26/21 08/26/21 19:50 05:19 05:19 WBC 8.8 RBC 3.47 L Hgb 9.1 L Hct 28.7 L MCV 82.7 MCH 26.2 L MCHC 31.7 RDW 16.0 Plt Count 184 MPV 12.2 Immature Gran % (Auto) 0.6 H Neut % (Auto) 81.6 H Lymph % (Auto) 6.7 L [place] % (Auto) 11.1 H Eos % (Auto) 0.0 Baso % (Auto) 0.0 Lymph # (Auto) 0.6 L [place] # (Auto) 1.0 Eos # (Auto) 0.0 Baso # (Auto) 0.0 Abs Immat Gran (auto) 0.05 H Absolute Neuts (auto) 7.1 Absolute Nucleated RBC 0.000 Nucleated RBC % (auto) 0.0 Sodium 137 Potassium 2.7 L Chloride 105 Carbon Dioxide 23 Anion Gap 12 BUN 9 Creatinine 0.49 L Estim Creat Clear Calc 79.6 Estimated GFR > 60 POC Glucose 162 H Fasting Glucose 174 H Calcium 7.3 L Magnesium 1.5 L Total Bilirubin 0.5 AST 7 D ALT < 6 Alkaline Phosphatase 175 H Total Protein 5.1 L Albumin 2.4 L 08/26/21 08/26/21 08/26/21 07:27 11:36 16:05 WBC RBC Hgb Hct MCV MCH MCHC RDW Plt Count MPV Immature Gran % (Auto) Neut % (Auto) Lymph % (Auto) [place] % (Auto) Eos % (Auto) Baso % (Auto) Lymph # (Auto) [place] # (Auto) Eos # (Auto) Baso # (Auto) Abs Immat Gran (auto) Absolute Neuts (auto) Absolute Nucleated RBC Nucleated RBC % (auto) Sodium Potassium Chloride Carbon Dioxide Anion Gap BUN Creatinine Estim Creat Clear Calc Estimated GFR POC Glucose 180 H 168 H 185 H Fasting Glucose Calcium Magnesium Total Bilirubin AST ALT Alkaline Phosphatase Total Protein Albumin Preliminary micro results at discharge 08/23/21 Unknown Urine Culture - Preliminary Urine Catheterized - Straight Catheter Culture in progress. Discharge Plan Discharge Patient Disposition: [facility] Discharge Diagnosis: hypernatremia, hyperglycemia Referrals: [facility] [Other] - 1 Day (RESUMPTION OF CARE) Hetal Collado MD [Primary Care Provider] - 1 Week Discharge Medications: Continued latanoprost 0.005 % Drops 1 drp OPHTHALMIC (EYE) DAILY@1700 RF: 0 metformin 500 mg Tablet 500 mg PO DAILY RF: 0 phenytoin sodium extended 100 mg Capsule 100 mg PO BID@0800,1300 RF: 0 phenytoin 50 mg Tablet,Chewable 50 mg PO BID@0800,1700 RF: 0 amlodipine 5 mg Tablet 5 mg PO DAILY RF: 0 methenamine hippurate 1 gram Tablet 1 g PO BID@0800,1700 RF: 0 erythromycin 5 mg/gram (0.5 %) Ointment 1 appl OPHTHALMIC (EYE) MOTH@2100 RF: 0 ferrous sulfate 325 mg (65 mg iron) Tablet 325 mg PO DAILY RF: 0 fluticasone propionate 50 mcg/actuation [place],Suspension 2 spray INTRANASAL DAILY RF: 0 escitalopram oxalate 5 mg Tablet 5 mg PO DAILY RF: 0 omeprazole 20 mg Tablet,Delayed Release (Dr/Ec) 20 mg PO BID RF: 0 memantine 21 mg Capsule,Sprinkle,Er 24hr 21 mg PO DAILY@1700 RF: 0 amoxicillin-pot clavulanate [Augmentin] 875-125 mg Tablet 1 tab PO BID RF: 0 Discharge Orders: Discharge Order (Routine); Ordered 08/27/21 Ordered By: Jerman Pugh Diet: advance to usual diet Activity on Discharge: As tolerated Stand Alone Forms: Patient Portal Discharge page Care Plan Goals: avoid hospitalization Health Concerns: poor intake Plan of Treatment: comfort care Assessment: see above Discharge Date/Time: 08/27/21 14:45
[2021-08-26] MEDS: cefTRIAXone sodium 1 GM in 0.9 % Sodium Chloride 50 ML IV (18:01)
[2021-08-26 19:24] VITALS: BP 144/58; PULSE 87; RESP 16; TEMP 36.3; O2SAT 98
[2021-08-26 20:12] LABS: Glucose, Whole Blood 143 mg/dL (60-115)
[2021-08-26] MEDS: Enoxaparin Sodium 40 MG/0.4 ML SYRINGE SUBCUT (20:26)
[2021-08-27] VITALS: BP 115/62; PULSE 61; RESP 16; TEMP 36; O2SAT 96
[2021-08-27] MEDS: Sodium Chloride 0.45 % 1,000 ML 100 ML IVCONT ×2 (00:15→10:30)
[2021-08-27 03:54] VITALS: BP 122/58; PULSE 64; RESP 16; TEMP 36.1; O2SAT 99
[2021-08-27 05:33] LABS: MANUAL DIFF FLAG NO
[2021-08-27 05:42] LABS: Basophils Percent Auto 0.1 % (0-2); Hematocrit 31.8 % (37-47); Hemoglobin 10.3 g/dl (12.0-16.0); Imm Gran Abs Auto 0.05 X10*3/uL (0.00-0.03); Imm Gran Pct Auto 0.5 % (0.0-0.4); Lymphocytes Absolute Auto 0.5 X10*3/uL (1.2-4.9); Lymphocytes Percent Auto 4.7 % (20-40); Mean Corpuscular HGB Conc 32.4 g/dl (31.0-35.0); Mean Corpuscular Volume 80.3 fL (80-98); Monocytes Percent Auto 9.3 % (2-11); Neutrophils Absolute Auto 9.1 X10*3/uL (2.0-8.3); Neutrophils Percent Auto 85.4 % (45-73); Platelet Count 181 X10*3/uL (160-400); Red Blood Count 3.96 X10*6/uL (4.20-5.50); Red Cell Distribution Width 15.6 % (11.0-16.0); White Blood Count 10.6 X10*3/uL (4.8-10.8)
[2021-08-27 06:01] LABS: Alanine Aminotransferase < 6 U/L (0-31); Albumin Level 2.5 g/dL (3.5-5.0); Alkaline Phosphatase 184 U/L (39-117); Anion Gap 14 (12-20); Aspartate Amino Transferase 7 U/L (5-31); Bilirubin Total 0.4 mg/dL (0.0-1.0); Blood Urea Nitrogen 6 mg/dL (9-16); Calcium 7.1 mg/dL (8.4-10.2); Carbon Dioxide 23 mmol/L (22-29); Chloride 101 mmol/L (96-108); Creatinine Clr Calc Pharmacy 88.7; Estimated Glomerular Filt Rate > 60; Glucose Fasting 137 mg/dL (60-99); Potassium 2.6 mmol/L (3.3-5.1); Sodium 135 mmol/L (135-145); Total Protein 5.3 g/dL (6.5-8.0)
[2021-08-27 07:45] LABS: Glucose, Whole Blood 128 mg/dL (60-115)
[2021-08-27 08:00] VITALS: BP 123/82; PULSE 61; RESP 17; TEMP 36.1; O2SAT 97
--- NOTE | 2021-08-27 09:50 | MHC.CLN ---
F/U SEEN BY SALES COUNSELOR 08/26 WITH RECOMMENDATION FOR AND DIET CHANGED TO NPO. CONTINUES WITH STAGE II WOUND TO COCCYX. TRANSFER TO LTC FACILITY PENDING. REFERRAL FOR HOSPICE CARE AND AWAITING FAMILY DECISION.
--- NOTE | 2021-08-27 10:03 | MHC.SLORD ---
Speech Language Pathology Order Status: Updated with CM, who reported that pt will be discharged to a SNF this afternoon with eventual transition to Hospice care. Pt was unable to form a labial seal when presented with a trace amount of honey thick water via tsp. She bit the end of the spoon and then turned her head away. Updated with RN re: pt's inability to safely accept PO. Recommend continued NPO. Continued ST upon pt's transfer to SNF is recommended to determine plan for nutrition/hydration.
--- NOTE | 2021-08-27 11:21 | PM.DS ---
DS: Providers Provider Date of Service: 08/27/21 Date of admission: 08/23/21 18:33 Primary care physician: Hetal Collado MD DS: Diagnosis Discharge Diagnosis (1) Acute hypernatremia: Status: Acute (2) Acute UTI: Status: Acute (3) Dementia: Status: Acute DS: Summary Hospital Course Hospital Course: 81 year-old female with history of dementia among multiple other medical problems, who has had recent UTI and started on Augmentin 875 mg twice a day on the .? The patient was sent in for decreased p.o. intake, increased lethargy.? She is a long-term resident of local half-way facility; daughter states that she did not respond to antibiotics.? Sent in today for mental status changes. Hospital course Admitted to [facility] on ceftriaxone. Initially with sodium of 150 found to have a free water deficit of 2 L and given a Liter of D5 with correction of sodium. Nurse noted issues swallowing pills on the 2nd day of hospitalization and a speech eval was ordered. Ultimate speech recommendation was that the patient be and p.o.. The afternoon of , long conversation with daughters. After reviewing options, they wish to bring mother to half-way facility with likely hospice initiation. They state that they have had discussions with her and she would not want any extensive med her sugars including G-tube. She will be discharged to local SNF... Further treatment based on her clinical status and family's wishes Time Spent with Patient Time attestation: Total time spent providing and/or coordinating discharge services: Discharge coordination time: Greater than 30 minutes Quality: Stroke Does the patient have a stroke diagnosis?: No Physical Exam Vital Signs: Vital Signs: Last Vital Signs Temp 97.0 F 08/27/21 08:00 Pulse 61 08/27/21 08:00 Resp 17 08/27/21 08:00 BP 123/82 08/27/21 08:00 Pulse Ox 97 08/27/21 08:00 Body Mass Index 22.7 Const Other:?Nonverbal; refusing p.o. his HENMT Other:?Mucous membranes moist Resp Other:?Clear to auscultation bilaterally with no rales rhonchi or wheezes Cardio Other:?No S4; positive S1-S2; no S3 murmurs rubs gallops GI Other:?Soft nontender nondistended with normoactive bowel sounds.? There is no appreciable hepatosplenomegaly Extrem Other:?No edema on right; heel boot on.? Left above knee amputation DS: Data Data Completed and Pending Labs on day of discharge: Laboratory Results - last 24 hr 08/26/21 08/26/21 08/26/21 11:36 16:05 20:02 WBC RBC Hgb Hct MCV MCH MCHC RDW Plt Count MPV Immature Gran % (Auto) Neut % (Auto) Lymph % (Auto) [place] % (Auto) Eos % (Auto) Baso % (Auto) Lymph # (Auto) [place] # (Auto) Eos # (Auto) Baso # (Auto) Abs Immat Gran (auto) Absolute Neuts (auto) Absolute Nucleated RBC Nucleated RBC % (auto) Sodium Potassium Chloride Carbon Dioxide Anion Gap BUN Creatinine Estim Creat Clear Calc Estimated GFR POC Glucose 168 H 185 H 143 H Fasting Glucose Calcium Total Bilirubin AST ALT Alkaline Phosphatase Total Protein Albumin 08/27/21 08/27/21 08/27/21 05:23 05:23 07:39 WBC 10.6 RBC 3.96 L Hgb 10.3 L Hct 31.8 L MCV 80.3 MCH 26.0 L MCHC 32.4 RDW 15.6 Plt Count 181 MPV 11.0 Immature Gran % (Auto) 0.5 H Neut % (Auto) 85.4 H Lymph % (Auto) 4.7 L [place] % (Auto) 9.3 Eos % (Auto) 0.0 Baso % (Auto) 0.1 Lymph # (Auto) 0.5 L [place] # (Auto) 1.0 Eos # (Auto) 0.0 Baso # (Auto) 0.0 Abs Immat Gran (auto) 0.05 H Absolute Neuts (auto) 9.1 H Absolute Nucleated RBC 0.000 Nucleated RBC % (auto) 0.0 Sodium 135 Potassium 2.6 L Chloride 101 Carbon Dioxide 23 Anion Gap 14 BUN 6 L Creatinine 0.44 L Estim Creat Clear Calc 88.7 Estimated GFR > 60 POC Glucose 128 H Fasting Glucose 137 H Calcium 7.1 L Total Bilirubin 0.4 AST 7 ALT < 6 Alkaline Phosphatase 184 H Total Protein 5.3 L Albumin 2.5 L Preliminary micro results at discharge 08/23/21 Unknown Urine Culture - Preliminary Urine Catheterized - Straight Catheter Culture in progress. Discharge Plan Discharge Patient Disposition: [facility] Discharge Diagnosis: hypernatremia, hyperglycemia Referrals: [facility] [Other] - 1 Day (RESUMPTION OF CARE) Hetal Collado MD [Primary Care Provider] - 1 Week Discharge Medications: Continued latanoprost 0.005 % Drops 1 drp OPHTHALMIC (EYE) DAILY@1700 RF: 0 metformin 500 mg Tablet 500 mg PO DAILY RF: 0 phenytoin sodium extended 100 mg Capsule 100 mg PO BID@0800,1300 RF: 0 phenytoin 50 mg Tablet,Chewable 50 mg PO BID@0800,1700 RF: 0 amlodipine 5 mg Tablet 5 mg PO DAILY RF: 0 methenamine hippurate 1 gram Tablet 1 g PO BID@0800,1700 RF: 0 erythromycin 5 mg/gram (0.5 %) Ointment 1 appl OPHTHALMIC (EYE) MOTH@2100 RF: 0 ferrous sulfate 325 mg (65 mg iron) Tablet 325 mg PO DAILY RF: 0 fluticasone propionate 50 mcg/actuation [place],Suspension 2 spray INTRANASAL DAILY RF: 0 escitalopram oxalate 5 mg Tablet 5 mg PO DAILY RF: 0 omeprazole 20 mg Tablet,Delayed Release (Dr/Ec) 20 mg PO BID RF: 0 memantine 21 mg Capsule,Sprinkle,Er 24hr 21 mg PO DAILY@1700 RF: 0 amoxicillin-pot clavulanate [Augmentin] 875-125 mg Tablet 1 tab PO BID RF: 0 Discharge Orders: Discharge Order (Routine); Ordered 08/27/21 Ordered By: Jerman Pugh Diet: advance to usual diet Activity on Discharge: As tolerated Stand Alone Forms: Patient Portal Discharge page Care Plan Goals: avoid hospitalization Health Concerns: poor intake Plan of Treatment: comfort care Assessment: see above Discharge Date/Time: 08/27/21 14:45
[2021-08-27 11:36] LABS: Glucose, Whole Blood 149 mg/dL (60-115)
[2021-08-27 11:43] VITALS: BP 130/58; PULSE 60; RESP 19; TEMP 36.1; O2SAT 97
[2021-08-27] MEDS: Collagenase Clostridium Hist. 30 GM TUBE 1 APPL TOPICAL (13:38)
[2021-08-27 14:02] LABS: COVID-19 Test Negative (Negative); IDNOW Serial# 9DD0AD1C
--- NOTE | 2021-08-27 14:14 | MHC.CM.PN ---
IMM 08/27/21, CM SPOKE WITH [facility] LIAISON, PT DTR'S AND HCP'S LARS AND JACKIE AFTER 10:30AM ROUNDS, BOTH SISTERS ON BOARD W/PLAN TO TRANSFER PT TO [facility] AT 2PM, AMBULANCE HAS ARRIVED AT TIME OF THIS NOTE. PLAN IS FOR [facility] TO START PT ON HOSPICE ONCE ADMITTED.
--- NOTE | 2021-09-23 05:47 | P.CDIR_ITS ---
Documented by User: Missy Morales CCS, CDIS 09/23/21 05:54 Retrospective Query PHYSICIAN'S DOCUMENTATION REQUEST Date of Query: 09/23/21 0504 Patient Name: Tammie Arguello Admit Date: 08/23/21 Dear Doctor, A review of the medical record indicates additional documentation may be needed. Please review below and update the documentation accordingly. Clinical Indicators: Risk Factors/Clinical Indicators/Treatments Discharge summary 08/27 - patient sent in for mental status changes. Dementia. PN - 08/25 - altered mental status secondary to UTI, IV Ceftriaxone. H&P: did not respond to Augmentin she was on poa for her UTI. ED: altered mental status, dementia, lethargic, unable to give history. Altered mental status poa * Encephalopathy due to UTI, toxic, metabolic or both * Not treating Encephalopathy * Due to a specified condition (such as UTI, or other condition, Dementia) * Other (please specify) * Unable to determine Use of terms such as suspected, likely, concern for, or probable (associated with a specific diagnosis that is being evaluated, monitored, or treated as if it exists) are acceptable and can be coded in the inpatient setting, when documented at the time of discharge. Thank you, Missy Morales CCS, CDIS Extension: Please use your independent medical judgment in providing your response. THIS QUERY IS PART OF THE PERMANENT MEDICAL RECORD Documented by User: Jerman Pugh MD 09/23/21 09:19 Retrospective Query Provider Response: Other (metabolic encephalopathy due to hypernatremia)
== END 2021-08-27 14:45 | disposition skilled nursing facility (03) | DRG 690 ==
LOC: HO.ED 16:01 → HO.EDOVER 18:53 → HO.S3 18:55
PROVIDERS: Admitting Provider Hospitalist; Emergency Provider Emergency Medicine; PCP Internal Medicine; Visit Provider Internal Medicine
DX: N39.0 Urinary tract infection, site not specified (principal); E87.0 Hyperosmolality and hypernatremia; E11.65 Type 2 diabetes mellitus with hyperglycemia; E86.0 Dehydration; F03.90 Unspecified dementia, unspecified severity, without behavioral disturbance, psychotic disturbance, mood disturbance, and anxiety; G40.909 Epilepsy, unspecified, not intractable, without status epilepticus; Z20.822 Contact with and (suspected) exposure to COVID-19; Z88.5 Allergy status to narcotic agent; Z79.51 Long term (current) use of inhaled steroids; Z79.84 Long term (current) use of oral hypoglycemic drugs; Z79.899 Other long term (current) drug therapy
CPT/HCPCS: 36415; 71045; 80048; 80053; 80185; 81001; 82947; 83735; 85025; 85027; 87086; 87088; 87635; 92610; 99285; J0696; J1650; J2405